=== PATIENT | female | born 1950 | race African-American/Black ===

== ENCOUNTER 2017-01-22 10:50 | Day surgery (SDC) | payer OTHER, BC ==
[2017-01-18 15:11] VITALS: BMI 36.3
[~2017-01-22 10:50] MED LIST: BUPIVACAINE HCL/PF 0.5% (5MG/ML) 10 ML VIAL ONE
[2017-01-22 11:07] LABS: BASOPHIL 0.7 % (0-2.0); EOSINOPHIL 2.1 % (0-4.5); MCH 31.9 pg (25.7-33.7); MCHC 33.6 g/dl (32.0-36.0); MEAN CELL VOLUME 95.1 fl (80-96); MEAN PLT VOLUME 8.8 fl (7.5-11.1); NEUTROPHILS 68.7 % (42.8-82.8); PLATELET COUNT 237 K/MM3 (134-434); RDW 12.6 % (11.6-15.6); WHITE BLOOD COUNT 7.7 K/mm3 (4.0-10.0)
[2017-01-22 11:20] LABS: INR 1.07 (0.82-1.09); PROTHROMBIN TIME (PATIENT) 12.1 SEC (9.98-11.88)
[2017-01-22 11:22] LABS: ACTIVATED PTT 29.2 SECONDS (26.9-34.4)
[2017-01-22 11:38] VITALS: TEMP 97.4
[2017-01-22 15:37] VITALS: BP 130/60; PULSE 60
== END 2017-01-22 15:40 | disposition home or self-care (01) ==
LOC: JRADIR 10:50
PROVIDERS: ATTEND Family Medicine
PROC: 3E0R3BZ Introduction of Anesthetic Agent into Spinal Canal, Percutaneous Approach (ICD-10-PCS; principal; 2017-01-22)
PROC: 3E0R33Z Introduction of Anti-inflammatory into Spinal Canal, Percutaneous Approach (ICD-10-PCS; 2017-01-22)
PROC: B01BYZZ Fluoroscopy of Spinal Cord using Other Contrast (ICD-10-PCS; 2017-01-22)
DX: M51.26 Other intervertebral disc displacement, lumbar region (principal); M54.5 Low back pain
CPT/HCPCS: 36415; 62322; 77003-TC; 85025; 85610; 85730

== ENCOUNTER 2018-04-07 09:20 | Observation (INO) | payer OTHER, BC ==
[2018-04-07 09:36] VITALS: BMI 37.3
--- NOTE | 2018-04-07 09:42 | PDOC ---
History of Present Illness - General Chief Complaint: Nausea/Vomiting Stated Complaint: CHEST PAIN Time Seen by Provider: 04/07/18 09:38 - History of Present Illness Initial Comments: 04/07/18 10:03 The patient is a 67 year old female with a PMH of HTN, HLD, "heart problems" and hyperthyroidism presents to the ED c/o 3 day h/o intermittent chest/ abdominal pain. Pain is midsternal/upper abdomen, non-qualifiable and was initially radiating to her back, however is not currently doing so. Pain was initially intermittent (some relief with PO intake making her initially think it was hunger pains) and when it became constant this morning she decided to come to the ED. Endorses nausea w/o vomiting. Denies shortness of breath, increased lower extremity swelling, recent immobilization as well as fevers/ chills. Three normal BM today, notes she usually one has one BM daily. Notes she had a stress test last month that "was bad." NKDA PMD: Dr. Hinojosa Cardiology: Dr. Sawyer As per EMR, patient has not been evaluated in our ED on prior occasion. Past History - Past Medical History Allergies/Adverse Reactions: Allergies Allergy/AdvReac Type Severity Reaction Status Date / Time No Known Drug Allergies Allergy Verified 04/07/18 11:02 Home Medications: Ambulatory Orders Amlodipine Bes/Olmesartan Med [Dustin 10-40 mg Tablet] 1 each PO DAILY 01/18/17 Aspirin Coated [Ecotrin -] 81 mg PO DAILY 01/18/17 Carvedilol Phosphate [Coreg Cr -] 80 mg PO DAILY 01/18/17 Hydrochlorothiazide [Hctz -] 12.5 mg PO DAILY 01/18/17 Methimazole [Tapazole] 5 mg PO ASDIR 01/18/17 Methimazole [Tapazole -] 5 mg PO DAILY tablet 04/08/18 Pantoprazole Sodium [Protonix -] 40 mg PO DAILY #30 tablet.ec 04/08/18 Rosuvastatin [Crestor -] 20 mg PO HS #30 tablet 04/08/18 Anemia: No Asthma: No Cancer: No Cardiac Disorders: Yes ("BLOCKAGE") CVA: No COPD: No CHF: No Dementia: No Diabetes: ("PRE-DIABETIC") GI Disorders: Yes (REFLUX) Disorders: No HTN: Yes Hypercholesterolemia: Yes Liver Disease: No Seizures: No Thyroid Disease: Yes - Surgical History Abdominal Surgery: No Appendectomy: No Cardiac Surgery: No Cholecystectomy: No Lung Surgery: No Neurologic Surgery: No Orthopedic Surgery: No - Immunization History Immunization Up to Date: No - Suicide/Smoking/Psychosocial Hx Smoking History: Never smoked Have you smoked in the past 12 months: No Hx Alcohol Use: No Drug/Substance Use Hx: No Substance Use Type: None Hx Substance Use Treatment: No Review of Systems - Review of Systems Constitutional: No: Chills, Fever HEENTM: No: Recent change in vision, Throat Pain Respiratory: No: Shortness of Breath, Wheezing Cardiac (ROS): Yes: Chest Pain. No: Lightheadedness, Palpitations, Syncope ABD/GI: Yes: Nausea. No: Constipated, Diarrhea, Vomiting *Physical Exam - Vital Signs Last Vital Signs Temp Pulse Resp BP Pulse Ox 97.9 F 74 16 164/77 95 04/07/18 09:33 04/07/18 09:33 04/07/18 09:33 04/07/18 09:33 04/07/18 09:33 - Physical Exam Comments: 04/07/18 12:41 "GENERAL: Awake, alert, and fully oriented, in no acute distress. HEAD: No signs of trauma EYES: PERRLA, EOMI, sclera anicteric, conjunctiva clear ENT: Auricles normal inspection, hearing grossly normal, nares patent, oropharynx clear without exudates. Moist mucosa NECK: Nontender, no stepoffs, Normal ROM, supple, no lymphadenopathy, JVD, or masses LUNGS: Breath sounds equal, clear to auscultation bilaterally. No wheezes, and no crackles HEART: Regular rate and rhythm, normal S1 and S2, no murmurs, rubs or gallops ABDOMEN: Soft, nontender, normoactive bowel sounds. No guarding, no rebound. No masses EXTREMITIES: Normal range of motion, no edema. No clubbing or cyanosis. No cords, erythema, or tenderness NEUROLOGICAL: Cranial nerves II through XII intact. 5/5 strength and sensation in all extremities, Normal speech, normal gait, normal cerebellar function SKIN: Warm, Dry, normal turgor, no rashes or lesions noted. Moderate Sedation - Procedure Monitoring Vital Signs: Procedure Monitoring Vital Signs Temperature 97.9 F 04/07/18 09:33 Pulse Rate 74 04/07/18 09:33 Respiratory Rate 16 04/07/18 09:33 Blood Pressure 164/77 04/07/18 09:33 O2 Sat by Pulse Oximetry (%) 95 04/07/18 09:33 ED Treatment Course - LABORATORY CBC & Chemistry Diagram: 04/08/18 05:30 04/08/18 05:30 Medical Decision Making - Medical Decision Making 04/07/18 11:53 67 year old female with intermittent chest pain, h/o recent stress testing with uncertain suboptimal results . EKG shows TWI in III, aVF and V3-V4. No prior EKGs in EMR. Frontal diagnosis: r/o ACS, Esophageal spasm, GERD, costochondritis, also consider PUD, gastritis. Consider Aortic Diesseciton however as pain not continuously radiating to the back and equal B/L BP, less likely will refrain from U/S at this time. Heart Score 4. Will obtain basic labs, Troponin, CXR. Disposition is admission for serial troponins, full cardiac evaluation. 04/07/18 11:56 Case d/w patient's PMD, Dr. Blake, notes patient was evaluated in his office on 03/23. States patient's stress test was reviewed and she was given Nitro for any chest pain. Agrees w/admission for serial troponins and requests Dr. Yang/ [facility] for cardiology. Patient reassessed @ bedside. VSS States she has not taken the nitro on prior occasion. Updated on plan of care. Dr. Sawyer consult pending. 04/07/18 15:00 Case d/w Dr. Sawyer - notes patient had low level ischemia on 12/2017 stress testing. No new EKG changes. Agrees w/admission as well as symptomatic GI treatment. 04/07/18 15:31 Case d/w Dr. Vora (covering for Dr. Hinojosa) will admit for further evaluation. Patient symptomatically improved, amenable to admission. *DC/Admit/Observation/Transfer Diagnosis at time of Disposition: Chest pain - Discharge Dispostion Condition at time of disposition: Fair Decision to Admit order: Yes - Prescriptions - Referrals - Patient Instructions - Post Discharge Activity
[2018-04-07] MEDS ORDERED: ONDANSETRON 4 MG/2 ML VIAL IVPUSH ONE (10:05)
[2018-04-07] MEDS ORDERED: FAMOTIDINE 20 MG/50 ML IVPB 20 MG/50 ML MG IVPB ONE ×2 (10:16→10:32)
[2018-04-07] MEDS ORDERED: MAG HYDROX/AL HYDROX/SIMETH 30 ML UNIT-DOSE CUP PO ONE (10:16)
[2018-04-07] MEDS ORDERED: SODIUM CHLORIDE 0.9% 500 ML INFUS.BAG IV ONE (10:16)
[2018-04-07] MEDS ORDERED: ONDANSETRON 4 MG/2 ML VIAL ONE ×2 (10:17→10:41)
[2018-04-07] MEDS ORDERED: MAG HYDROX/AL HYDROX/SIMETH 30 ML UNIT-DOSE CUP ONE (10:32)
--- NOTE | 2018-04-07 10:37 | PDOC ---
Attending Attestation - Resident Resident Name: Niki Yao - ED Attending Attestation I have performed the following: I have examined & evaluated the patient, The case was reviewed & discussed with the resident, I agree w/resident's findings & plan, Exceptions are as noted - HPI HPI: 04/07/18 10:35 67 F with h/o HTN, HLD, and hyperthyroidism, presenting to ED with chest pain x 3 days. Pt states that it is intermittent, midsternal. Does not radiate. She notes that it feels like hunger pains but states that she has never had pain like this before. Denies SOB. Denies diaphoresis. Endorses mild nausea without vomiting. NO abdominal pain. No F/C. Denies any increased leg swelling. No recent immobilization. Pt notes that she follows with Dr. Ibarra, who did a stress test last month that pt reports was "not normal". - Physicial Exam PE: 04/07/18 10:37 "GENERAL: Awake, alert, and fully oriented, in no acute distress. HEAD: No signs of trauma EYES: PERRLA, EOMI, sclera anicteric, conjunctiva clear ENT: Auricles normal inspection, hearing grossly normal, nares patent, oropharynx clear without exudates. Moist mucosa NECK: Nontender, no stepoffs, Normal ROM, supple, no lymphadenopathy, JVD, or masses LUNGS: Breath sounds equal, clear to auscultation bilaterally. No wheezes, and no crackles HEART: Regular rate and rhythm, normal S1 and S2, no murmurs, rubs or gallops ABDOMEN: Soft, nontender, normoactive bowel sounds. No guarding, no rebound. No masses EXTREMITIES: Normal range of motion, no edema. No clubbing or cyanosis. No cords, erythema, or tenderness NEUROLOGICAL: Cranial nerves II through XII intact. 5/5 strength and sensation in all extremities, Normal speech, normal gait, normal cerebellar function SKIN: Warm, Dry, normal turgor, no rashes or lesions noted. - Medical Decision Making 04/07/18 10:37 67 F with 3 days of intermittent chest pressure. EKG with TWIs in leads III, aVF , V3-V4. No prior EKGs to compare. Will need ACS rule out. Pt with no clinical s /s DVT. - Labs, trop - CXR - Cards consult w Dr. Ibarra - Admit tele
[2018-04-07 10:51] LABS: BASO % 0.5 % (0-2.0); HEMATOCRIT 32.4 % (32.4-45.2); HEMOGLOBIN 11.2 GM/dL (10.7-15.3); LYMPH % 20.3 % (8-40); MCH 33.1 pg (25.7-33.7); MCHC 34.4 g/dl (32.0-36.0); MEAN CELL VOLUME 96.2 fl (80-96); MEAN PLT VOLUME 9.7 fl (7.5-11.1); MONO % 5.9 % (3.8-10.2); NEUT % 72.3 % (42.8-82.8); PLATELET COUNT 207 K/MM3 (134-434); RBC 3.37 M/mm3 (3.60-5.2); RDW 12.2 % (11.6-15.6); WHITE BLOOD COUNT 6.5 K/mm3 (4.0-10.0)
[2018-04-07 11:23] LABS: ALBUMIN 4.4 g/dl (3.4-5.0); ALK PHOS 71 U/L (45-117); ANION GAP 4 MMOL/L (8-16); BILIRUBIN,TOTAL 0.4 mg/dL (0.2-1); BLOOD UREA NITROGEN 25 mg/dL (7-18); CALCIUM 9.4 mg/dL (8.5-10.1); CHLORIDE 106 mmol/L (98-107); CO2 28 mmol/L (21-32); CREATININE 1.1 mg/dL (0.55-1.3); GLUCOSE,RANDOM 119 mg/dL (74-106); N-TERMINAL BNP 124.5 pg/ml (5-125); POTASSIUM 4.4 mmol/L (3.5-5.1); SGOT/AST 16 U/L (15-37); SGPT/ALT 17 U/L (13-61); SODIUM 138 mmol/L (136-145); TOT PROT 8.4 g/dl (6.4-8.2)
--- NOTE | 2018-04-07 14:35 | CON.CARD ---
Consult Consult Specialty:: Cardiology Referred by:: Emergency Medicine Reason for Consultation:: Chest pain - History of Present Illness Chief Complaint: Chest pain History of Present Illness: Chief Complaint: Follow-up evaluation in a patient with known history of coronary artery disease/chest pain syndrome, diastolic left ventricular dysfunction, hypertensive cardiovascular disease, [id number] diabetes mellitus and hypercholesterolemia. History of Present Illness: 67-year-old female of [place] descent of ancestry with known history of coronary artery disease/chest pain syndrome with mildly abnormal MPI 12/2017 angina pectoris, diastolic left ventricular dysfunction with chronic class 0-I [place] [employer] classification left ventricular failure, mitral valve redundancy with no evidence of mitral valve prolapse and mild degree of mitral valve regurgitation on echocardiography performed June 26, 2016, heart murmur related to aortic valve sclerosis with no evidence of aortic valve stenosis on echocardiography performed June 26, 2016, tricuspid valve regurgitation mild in severity with mild to moderate degree of pulmonary hypertension RVSP of 44 mmHg on echocardiography performed April 08, 2014 and 36.2 mmHg on echocardiography performed June 26, 2016, hypertensive cardiovascular disease, non-insulin- dependent diabetes mellitus dietary management, hypercholesterolemia, complete right bundle branch block, hyperthyroidism, gastro-esophageal reflux disease, degenerative lumbosacral disc disease with chronic low back pain syndrome and chronic anemia who was last evaluated in the office December 09, 2017. Patient presents to ED with intermittent, non-exertional retrosternal chest and epigastric discomfort radiating to back without dyspnea on exertion worse than baseline, orthopnea or paroxysmal nocturnal dyspnea, near or true syncope, or palpitations, fatigue or tiredness. Patient does not exercise on regular bases but she remains active. Patient reports weight gain related to the above-noted lack of exercise and dietary indiscretion. - History Source History Provided By: Patient Limitations to Obtaining History: No Limitations - Alcohol/Substance Use Hx Alcohol Use: No - Smoking History Smoking history: Never smoked Have you smoked in the past 12 months: No Home Medications - Allergies Allergies/Adverse Reactions: Allergies Allergy/AdvReac Type Severity Reaction Status Date / Time No Known Drug Allergies Allergy Verified 04/07/18 11:02 - Home Medications Home Medications: Ambulatory Orders Amlodipine Bes/Olmesartan Med [Dustin 10-40 mg Tablet] 1 each PO DAILY 01/18/17 Aspirin Coated [Ecotrin -] 81 mg PO DAILY 01/18/17 Carvedilol Phosphate [Coreg Cr -] 80 mg PO DAILY 01/18/17 Hydrochlorothiazide [Hctz -] 12.5 mg PO DAILY 01/18/17 Methimazole [Tapazole] 5 mg PO ASDIR 01/18/17 Rosuvastatin Calcium [Crestor] 10 mg PO HS 01/18/17 Review of Systems - Review of Systems Cardiovascular: reports: Chest Pain, Shortness of Breath Gastrointestinal: reports: Abdominal Pain Vital Signs: Vital Signs Temperature 98.1 F 04/07/18 10:44 Pulse Rate 66 04/07/18 10:44 Respiratory Rate 18 04/07/18 10:44 Blood Pressure 146/68 04/07/18 10:44 O2 Sat by Pulse Oximetry (%) 98 04/07/18 11:26 Constitutional: Yes: No Distress, Calm Neck: Yes: Supple Respiratory: Yes: Regular, CTA Bilaterally Gastrointestinal: Yes: Soft, Hypoactive Bowel Sounds, Tenderness, Epigastrium Cardiovascular: Yes: Regular Rate and Rhythm JVD: No Carotid Bruit: No Heart Sounds: Yes: S1, S2 Edema: No - Other Data Labs, Other Data: CBC, BMP 04/07/18 10:35 04/07/18 10:35 Troponin, BNP 04/07/18 10:35 Troponin I < 0.02 B-Natriuretic Peptide 124.5 Troponin, BNP 04/07/18 10:35 Troponin I < 0.02 B-Natriuretic Peptide 124.5 NSR @ 72 RBBB similar to previous Ejection Fraction %: LVEF > or = 40 % Imaging - Results Chest X-ray: Report Reviewed (NAD) Problem List - Problems (1) Chest pain Code(s): R07.9 - CHEST PAIN, UNSPECIFIED Qualifiers: Chest pain type: unspecified Qualified Code(s): R07.9 - Chest pain, unspecified (2) Mitral valve prolapse syndrome Code(s): I34.1 - NONRHEUMATIC MITRAL (VALVE) PROLAPSE (3) Hyperlipidemia Code(s): E78.5 - HYPERLIPIDEMIA, UNSPECIFIED Qualifiers: Hyperlipidemia type: pure hypercholesterolemia Qualified Code(s): E78.00 - Pure hypercholesterolemia, unspecified; E78.0 - Pure hypercholesterolemia (4) Diastolic dysfunction Code(s): I51.89 - OTHER ILL-DEFINED HEART DISEASES (5) Hypertensive cardiovascular disease Code(s): I11.9 - HYPERTENSIVE HEART DISEASE WITHOUT HEART FAILURE Qualifiers: Heart failure presence: without heart failure Qualified Code(s): I11.9 - Hypertensive heart disease without heart failure (6) Abnormal cardiovascular function study Code(s): R94.30 - ABNORMAL RESULT OF CARDIOVASCULAR FUNCTION STUDY, UNSP (7) Hyperthyroidism Code(s): E05.90 - THYROTOXICOSIS, UNSP WITHOUT THYROTOXIC CRISIS OR STORM Assessment/Plan Echocardiography 01/03/2018 Normal LV size and fxn with normal LVEF 65-70%, normal RV size and fxn, mild MR, TR RVSP 38 mmHg Myocardial perfusion imaging study performed 01/07/2018 revealed small size inferolateral mild ischemia normal left ventricular contraction pattern on LV gated analysis with calculated left ventricular ejection fraction of 78% at rest , 73% post exercise reported at 92% of maximum predicted target heart rate with poor exercise tolerance and capacity and appropriate blood pressure response to level of exercise. Patient exercised for 3 minutes and 18 seconds into stage II of Jim protocol with peak exercise heart rate of 142 bpm and peak exercise blood pressure 190/80 millimeters mercury. ASSESSMENT: 1. Atypical chest pain 2. Coronary artery disease with mildly abnormal myocardial perfusion imaging study for myocardial [id number]/13/2018 angina pectoris endothelial dysfunction , stable. 3. Diastolic left ventricular dysfunction with chronic class 0-I [place] [employer] classification left ventricular failure, compensated/ euvolemic. 4. 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 5. Heart murmur related to aortic valve sclerosis with no evidence of aortic valve stenosis on echocardiography performed June 26, 2016. 6. Tricuspid valve regurgitation mild in severity with mild to moderate degree of pulmonary hypertension RVSP of 38 mmHg on echocardiography performed 2017 7. Hypertensive cardiovascular disease. 8. Hhf-qbipikk-vupnvxzoi diabetes mellitus dietary management, at goal. 9. Hypercholesterolemia. 10. Complete right bundle branch block. 11. Hyperthyroidism. 12. History of gastro-esophageal reflux disease. 13. History of degenerative lumbosacral disc disease with chronic low back pain syndrome. 14. History of chronic anemia. PLAN: 1. Ruling out for VT, agree with trial of antacids 2. Continue Dustin 5/40 qd, Coreg CR 80 qd, ASA 81 qd, Crestor 20 qd 3. Patient was strongly counseled dietary compliance including salt restriction /caloric restriction, initiation of moderate intensity aerobic exercise and weight reduction. 4. After ruled out for VT, may d/c with f/u with Dr. Ibarra for medication titration 5. Thank you for consultative opportunity
--- NOTE | 2018-04-07 14:38 | EKG ---
Test Reason : Blood Pressure : / mmHG Vent. Rate : 072 BPM Atrial Rate : 072 BPM P-R Int : 160 ms QRS Dur : 134 ms QT Int : 434 ms P-R-T Axes : 064 070 021 degrees QTc Int : 475 ms NORMAL SINUS RHYTHM RIGHT BUNDLE BRANCH BLOCK ABNORMAL ECG WHEN COMPARED WITH ECG OF 14-JUN-1999 08:41, PREMATURE SUPRAVENTRICULAR COMPLEXES ARE NO LONGER PRESENT RIGHT BUNDLE BRANCH BLOCK IS NOW PRESENT Confirmed by LA NENA LYNNE, JOAO ([id number]) on 04/07/2018 2:38:13 PM Referred By: Confirmed By:JOAO DEUTSCH MD
--- NOTE | 2018-04-07 16:19 | HP ---
Admitting History and Physical - Admission History of Present Illness: The patient is a 67 year old female with a PMH of HTN, HLD, CAD and hyperthyroidism presents to the ED c/o intermittent abdominal pain. Pain started three days previous and was initially intermittent (some relief with PO intake) and when it became constant this morning she decided to come to the ED. Endorses nausea w/o vomiting. Denies chest pain, shortness of breath as well as fevers/chills. Three normal BM today, notes she usually one has one BM daily. Denies fevers/chills. Notes she had a stress test last month that "was bad." - Past Medical History Cardiovascular: Yes: CAD, HTN, Hyperlipdemia - Smoking History Smoking history: Never smoked Have you smoked in the past 12 months: No - Alcohol/Substance Use Hx Alcohol Use: No Home Medications - Allergies Allergies/Adverse Reactions: Allergies Allergy/AdvReac Type Severity Reaction Status Date / Time No Known Drug Allergies Allergy Verified 04/07/18 11:02 - Home Medications Home Medications: Ambulatory Orders Amlodipine Bes/Olmesartan Med [Dustin 10-40 mg Tablet] 1 each PO DAILY 01/18/17 Aspirin Coated [Ecotrin -] 81 mg PO DAILY 01/18/17 Carvedilol Phosphate [Coreg Cr -] 80 mg PO DAILY 01/18/17 Hydrochlorothiazide [Hctz -] 12.5 mg PO DAILY 01/18/17 Methimazole [Tapazole] 5 mg PO ASDIR 01/18/17 Rosuvastatin Calcium [Crestor] 10 mg PO HS 01/18/17 Review of Systems - Review of Systems Gastrointestinal: reports: Abdominal Pain (epigastric pain) Physical Examination Vital Signs: Vital Signs Temperature 98.1 F 04/07/18 10:44 Pulse Rate 66 04/07/18 10:44 Respiratory Rate 18 04/07/18 10:44 Blood Pressure 146/68 04/07/18 10:44 O2 Sat by Pulse Oximetry (%) 98 04/07/18 11:26 Constitutional: Yes: Calm Cardiovascular: Yes: Regular Rate and Rhythm, Murmur, S1, S2 Respiratory: Yes: CTA Bilaterally Gastrointestinal: Yes: Normal Bowel Sounds, Soft Edema: Yes Neurological: Yes: Alert, Oriented Labs: CBC, BMP 04/07/18 10:35 04/07/18 10:35 Imaging - Results X-ray: Report Reviewed EKG: Report Reviewed Problem List - Problems (1) Chest pain Assessment/Plan: tele obersevstion CE 3 sets asa crestor norvasc olmesartan not availbe will give losartan appreicate cardiology eval ECHO if 3 cets negative no arryhtmia dc home in AM Code(s): R07.9 - CHEST PAIN, UNSPECIFIED Qualifiers: Chest pain type: unspecified Qualified Code(s): R07.9 - Chest pain, unspecified (2) Hyperthyroidism Assessment/Plan: methimazole Code(s): E05.90 - THYROTOXICOSIS, UNSP WITHOUT THYROTOXIC CRISIS OR STORM
[2018-04-07] MEDS ORDERED: ROSUVASTATIN CA 20 MG TABLET (FP) PO SCH (22:00)
[2018-04-07] MEDS ORDERED: HEPARIN NA (PORCINE) 5,000 UNITS/ML 1ML VIAL ONE (22:17)
[2018-04-07] MEDS: HEPARIN NA (PORCINE) 5,000 UNITS/ML 1ML VIAL SQ SCH (22:57)
[2018-04-08 06:41] LABS: BASO % 0.6 % (0-2.0); EOS % 1.7 % (0-4.5); HEMATOCRIT 30.2 % (32.4-45.2); HEMOGLOBIN 10.7 GM/dL (10.7-15.3); LYMPH % 32.1 % (8-40); MCH 33.7 pg (25.7-33.7); MCHC 35.3 g/dl (32.0-36.0); MEAN CELL VOLUME 95.3 fl (80-96); MEAN PLT VOLUME 9.6 fl (7.5-11.1); MONO % 6.9 % (3.8-10.2); NEUT % 58.7 % (42.8-82.8); PLATELET COUNT 199 K/MM3 (134-434); RBC 3.16 M/mm3 (3.60-5.2); RDW 12.3 % (11.6-15.6); WHITE BLOOD COUNT 4.3 K/mm3 (4.0-10.0)
[2018-04-08 07:00] VITALS: BP 146/72; PULSE 55; TEMP 98.2
[2018-04-08 07:19] LABS: INR 1.08 (0.83-1.09); PROTHROMBIN TIME (PATIENT) 12.8 SEC (9.7-13.0)
[2018-04-08 07:21] LABS: ACTIVATED PTT 28.9 SECONDS (25.2-36.5)
[2018-04-08 07:31] LABS: ALBUMIN 3.7 g/dl (3.4-5.0); ALK PHOS 62 U/L (45-117); ANION GAP 6 MMOL/L (8-16); BILIRUBIN,TOTAL 0.3 mg/dL (0.2-1); BLOOD UREA NITROGEN 15 mg/dL (7-18); CALCIUM 8.7 mg/dL (8.5-10.1); CHLORIDE 106 mmol/L (98-107); CO2 26 mmol/L (21-32); CREATININE 0.9 mg/dL (0.55-1.3); GLUCOSE,RANDOM 97 mg/dL (74-106); MAGNESIUM 2.3 mg/dL (1.8-2.4); PHOSPHOROUS 4.1 mg/dL (2.5-4.9); POTASSIUM 4.1 mmol/L (3.5-5.1); SGOT/AST 17 U/L (15-37); SGPT/ALT 17 U/L (13-61); SODIUM 138 mmol/L (136-145); TOT PROT 7.6 g/dl (6.4-8.2)
[2018-04-08] MEDS: HEPARIN NA (PORCINE) 5,000 UNITS/ML 1ML VIAL SQ SCH (09:14)
[2018-04-08] MEDS ORDERED: LOSARTAN POTASSIUM 50 MG TABLET (FP) PO SCH (10:00)
[2018-04-08] MEDS ORDERED: amLODIPine BESYLATE 10 MG TABLET (FP) PO SCH (10:00)
[2018-04-08] MEDS ORDERED: METHIMAZOLE 10 MG TABLET (FP) PO SCH (10:00)
[2018-04-08] MEDS ORDERED: CARVEDILOL PHOSPHATE CR 40 MG CAPSULE (FP) PO SCH (10:00)
[2018-04-08] MEDS ORDERED: METHIMAZOLE 5 MG TABLET (FP) PO SCH (10:00)
[2018-04-08] MEDS ORDERED: ASPIRIN 81 MG CHEWABLE TABLETS PO SCH (10:00)
--- NOTE | 2018-04-08 10:14 | PN ---
Progress Note, Physician Chief Complaint: NAUSEA/VOMITING/CHEST PAIN History of Present Illness: NAD received trial of mylanta trops negative Seen by cardiology EKG at baseline? - Current Medication List Current Medications: Active Medications Amlodipine Besylate (Norvasc -) 10 mg PO DAILY [facility] Last Admin: 04/08/18 09:14 Dose: 10 mg Aspirin (Asa -) 81 mg PO DAILY [facility] Last Admin: 04/08/18 09:14 Dose: 81 mg Carvedilol (Coreg Cr -) 80 mg PO DAILY [facility] Last Admin: 04/08/18 09:14 Dose: 80 mg Heparin Sodium (Porcine) (Heparin -) 5,000 unit SQ BID [facility] Last Admin: 04/08/18 09:14 Dose: 5,000 unit Losartan Potassium (Cozaar -) 50 mg PO DAILY [facility] Last Admin: 04/08/18 09:14 Dose: 50 mg Methimazole (Tapazole -) 5 mg PO DAILY [facility] Last Admin: 04/08/18 09:14 Dose: 5 mg Rosuvastatin Calcium (Crestor -) 20 mg PO HS [facility] Last Admin: 04/07/18 23:20 Dose: 20 mg - Objective Vital Signs: Vital Signs Temperature 98.2 F 04/08/18 06:59 Pulse Rate 55 L 04/08/18 06:59 Respiratory Rate 16 04/08/18 06:59 Blood Pressure 146/72 04/08/18 06:59 O2 Sat by Pulse Oximetry (%) 97 04/08/18 06:59 Constitutional: Yes: Well Nourished, No Distress, Calm, Obese Cardiovascular: Yes: Regular Rate and Rhythm Respiratory: Yes: Regular Gastrointestinal: Yes: Normal Bowel Sounds, Soft, Abdomen, Obese, Tenderness, Epigastrium (soreness) Musculoskeletal: Yes: WNL Extremities: Yes: WNL Edema: No Peripheral Pulses WNL: Yes Neurological: Yes: Alert, Oriented Psychiatric: Yes: Alert, Oriented Labs: CBC, BMP 04/08/18 05:30 04/08/18 05:30 INR, PTT INR 1.08 (0.83-1.09) 04/08/18 05:30 Problem List - Problems (1) Abdominal pain Assessment/Plan: -Epigastric -resolved -d/c on PPI -Encouraged to follow up with GI-Dr Chance Collado if symptoms persist Code(s): R10.9 - UNSPECIFIED ABDOMINAL PAIN (2) Nausea & vomiting Assessment/Plan: -resolved Code(s): R11.2 - NAUSEA WITH VOMITING, UNSPECIFIED (3) Chest pain Assessment/Plan: -resolved -Seen by Cardiology -Trops negative -EKG reviewed Code(s): R07.9 - CHEST PAIN, UNSPECIFIED Qualifiers: Chest pain type: unspecified Qualified Code(s): R07.9 - Chest pain, unspecified Assessment/Plan see problem list
--- NOTE | 2018-04-08 14:04 | ECHO ---
Name: MEL OLVERA Exam:Adult Echocardiogram Study Date: 04/08/2018 09:08 AM Age: 67 yrs Reason For Study: OCTAVIO FOR EJECTION FRACTION Height: 66 in Weight: 231 lb BSA: 2.1 m2 MMode/2D Measurements & Calculations IVSd: 0.83 cm Ao root diam: 2.9 cm LVIDd: 5.2 cm LA dimension: 4.2 cm LVIDs: 2.6 cm ACS: 1.9 cm LVPWd: 0.98 cm IVSs: 1.4 cm LVPWs: 1.1 cm EDV(Juventino): 127.2 ml ESV(Juventino): 25.7 ml LAV(MOD-sp2): 25.3 ml LAV(MOD-sp4): 34.6 ml LAV(MOD-bp): 30.7 ml LAV(MOD-bp) Indexed: 14.4 ml/m2 Doppler Measurements & Calculations MV E max malik: 96.3 cm/sec Ao V2 max: 164.1 cm/sec MV A max malik: 84.4 cm/sec Ao max P.8 mmHg MV E/A: 1.1 Ao V2 mean: 108.5 cm/sec MV dec time: 0.19 sec Ao mean P.6 mmHg Ao V2 VTI: 35.9 cm MR max malik: 400.1 cm/sec TR max malik: 265.4 cm/sec MR max P.0 mmHg TR max P.2 mmHg Med Peak E' Malik: 5.4 cm/sec Med E/e': 18.0 Lat Peak E' Malik: 9.7 cm/sec Lat E/e': 10.0 Procedure The study was technically adequate with some images being suboptimal in quality. Left Ventricle There is mild concentric left ventricular hypertrophy. The left ventricular ejection fraction is norm al. Ejection Fraction = 55%. The transmitral spectral Doppler flow pattern is normal for age. Right Ventricle The right ventricle is normal in size and function. Atria Normal left and right atrial size and function. Mitral Valve The mitral valve is normal in structure and function. Tricuspid Valve The tricuspid valve is normal. There is mild tricuspid regurgitation. Aortic Valve The aortic valve is normal in structure and function. Pulmonic Valve The pulmonic valve is not well visualized. Great Vessels The aortic root is normal size. Pericardium/Pleura There is no pericardial effusion. Interpretation Summary There is mild concentric left ventricular hypertrophy. The left ventricular ejection fraction is normal. Leo Ramirez 04/08/2018 02:04 PM
== END 2018-04-08 11:12 | disposition home or self-care (01) ==
LOC: JER 09:20 → JERBED 11:58
PROVIDERS: ADMIT Family Medicine; ATTEND Family Medicine
PROC: 3E033GC Introduction of Other Therapeutic Substance into Peripheral Vein, Percutaneous Approach (ICD-10-PCS; principal; 2018-04-07)
PROC: 3E0337Z Introduction of Electrolytic and Water Balance Substance into Peripheral Vein, Percutaneous Approach (ICD-10-PCS; 2018-04-07)
PROC: 3E013GC Introduction of Other Therapeutic Substance into Subcutaneous Tissue, Percutaneous Approach (ICD-10-PCS; 2018-04-07)
DX: R07.89 Other chest pain (principal); I11.0 Hypertensive heart disease with heart failure; I50.1 Left ventricular failure, unspecified; I34.1 Nonrheumatic mitral (valve) prolapse; I25.10 Atherosclerotic heart disease of native coronary artery without angina pectoris; E78.5 Hyperlipidemia, unspecified; E05.90 Thyrotoxicosis, unspecified without thyrotoxic crisis or storm; R73.03 Prediabetes; K21.9 Gastro-esophageal reflux disease without esophagitis; R94.30 Abnormal result of cardiovascular function study, unspecified; R10.9 Unspecified abdominal pain; R11.2 Nausea with vomiting, unspecified; Z79.82 Long term (current) use of aspirin
CPT/HCPCS: 36415; 71045-TC-FY; 80053; 80061; 82550; 82553; 83036; 83690; 83721; 83735; 83880; 84100; 84439; 84443; 84484; 85025; 85027; 85610; 85730; 93005; 93010; 93306-TC; 96365; 96372; 96375; 99285-25; G0378; J1644

== ENCOUNTER 2019-11-12 05:03 | Inpatient (IN) | payer OTHER, BC ==
[2019-11-11 15:35] VITALS: BMI 35.5
[~2019-11-12 05:03] MED LIST changes: -BUPIVACAINE HCL/PF 0.5% (5MG/ML) 10 ML VIAL ONE; +CEFAZOLIN 2 GM in DEXTROSE 5%-WATER - 100 ML IVPB ONE
[2019-11-12] MEDS ORDERED: BUPIVACAINE LIPOSOME/PF (EXPAREL) 266 MG/20 ML VIAL ONE (08:52)
[2019-11-12] MEDS ORDERED: ceFAZolin SODIUM 1 GM VIAL ONE ×2 (09:05→17:16)
[2019-11-12] MEDS ORDERED: MIDAZOLAM HCL 2 MG/2 ML SINGLE DOSE VIAL ONE ×3 (10:50→13:02)
[2019-11-12] MEDS ORDERED: ceFAZolin SODIUM 1 GM VIAL IVPB ONE (11:15)
[2019-11-12] MEDS ORDERED: MAGNESIUM HYDROX 2400MG/30ML ORAL SUSPENSION 30 ML CUP PO PRN (13:56)
[2019-11-12] MEDS ORDERED: MAG HYDROX/AL HYDROX/SIMETH 30 ML UNIT-DOSE CUP PO PRN (13:56)
[2019-11-12] MEDS ORDERED: LACTATED RINGERS SOLUTION 1,000 ML IV SCH (14:00)
[2019-11-12] MEDS ORDERED: BACLOFEN 10 MG TABLET (FP) PO PRN (14:00)
[2019-11-12] MEDS ORDERED: oxyCODONE HCL 5 MG TABLET PO PRN (14:02)
--- NOTE | 2019-11-12 14:08 | OP ---
Operative Note - Note: Operative Date: 11/12/19 Pre-Operative Diagnosis: Right knee osteoarthritis Operation: Right knee total arthroplasty Post-Operative Diagnosis: Same as Pre-op Surgeon: Theodore Zelaya I [employer] Crewmember: Yeyo You Anesthesiologist/PROBATE PARALEGAL: Manjeet Liang Anesthesia: Spinal Estimated Blood Loss (mls): 100 Operative Report Dictated: Yes
--- NOTE | 2019-11-12 14:09 | SURG ---
Surgery Collections Representative Note Collections Representative: Yeyo You PA-C Date of Service: 11/12/19 Diagnosis: Right knee osteoarthritis Procedure: Rt knee arthroplasty I was present for the entirety of the operative procedure. For further detail, please refer to operative report. Visit type - Case Type Case Type: Scheduled - Emergency Emergency Visit: No - New patient This patient is new to me today: Yes Date on this admission: 11/12/19 - Critical Care Critical Care patient: No
[2019-11-12] MEDS: ONDANSETRON 4 MG/2 ML VIAL IVPUSH PRN (15:38)
[2019-11-12] MEDS: ACETAMINOPHEN 325 MG TABLET (FP) PO PRN (16:10)
--- NOTE | 2019-11-12 17:15 | OP ---
DATE OF OPERATION: 11/12/2019 PREOPERATIVE DIAGNOSIS: Severe degenerative joint disease of the right knee plus varus deformity. POSTOPERATIVE DIAGNOSIS: Severe degenerative joint disease of the right knee plus varus deformity. Plus degenerative tearing of the medial and the lateral menisci. SURGEON: Theodore Zelaya MD. ANESTHESIA: Spinal. PROCEDURE: Total knee replacement, medial and lateral meniscectomy, and medial release. DESCRIPTION OF PROCEDURE: After induction of spinal anesthesia, and without any tourniquet, the entire leg and knee and thigh were now prepped and draped in the usual manner. An anterior incision was made extending from the tibial tubercle proximally to almost 4 cm proximal to the superior pole of the patella. This was deepened through the subcutaneous tissue down to the extensor mechanism surface. A gentle medial flap was made, uncovering proximally the junction between the vastus medialis and the rectus femoris in the mid section of the medial border of the patella, and distally the medial border of the patellar tendon. The extensor mechanism now was released along that line. The synovium was opened. A large amount of serous fluid extruded out of the joint. The inspection confirmed the extensive arthritic changes mostly in the form of very severe damage to the articular cartilage throughout the knee, including the medial and lateral femoral condyle as well as the articular surface of the patella. Marginal osteophytes were visible. Degenerative tearing was found in the medial and the lateral menisci, and a radial tear in the posterior horn of the medial meniscus was also found. The procedure started first by a debulking of the hypertrophied synovium, which was followed by an excision of the medial and the lateral menisci through the same arthrotomy. Following this and using appropriate jigs from and Nephew lesion prosthesis, a distal cut was made into the femur, recessed 2 mm to accommodate 45 degrees flexure contracture. Other jigs also were used, and cuts were made into the distal femur of the proximal tibia and the articular surface of the patella. Sizing was done using the appropriate sizers, and the best size for the femur was number 5, for the tibia it was also a number 5. There was a 9-mm spacer and a 35-mm patella button. Trials were placed, and the knee now was examined. The knee being in a slight varus, there was some asymmetry of the box in extension and at this point a gentle pie crusting release was done to the medial structures. This allowed a normal alignment of the knee with the box parallel in extension. The knee was taken through range of motion, and it was from 0 to 140 degrees of flexion. The patella was tracking perfectly while in the intracondylar groove. All temporary components now were removed. Irrigation was done with normal saline. Hemostasis obtained. The final prosthesis was placed first by cementing the patella button and the tibial tray, and after hardening of the cement, the femoral component was Press-Fit against the femur and the spacer was placed in between. A final check showed a near anatomic alignment of 5 degrees of valgus clinically. There was perfect stability in extension and in flexion, range of motion from 0 to 135 degrees of flexion. The patella was tracking perfectly while in the intracondylar groove. Final irrigation was done with normal saline. The wound was closed in several layers, Vicryl number 1 for the extensor mechanism, 2-0 for the subcutaneous tissue, and wesley for the skin. The dressing was applied. Intraoperative x-rays were done and checked and showed excellent alignment of the prosthesis. The patient tolerated the procedure and left the operating room in excellent condition. Elaine [id number]
[2019-11-12] MEDS ORDERED: CEFAZOLIN 2 GM in DEXTROSE 5%-WATER - 100 ML IVPB ONE (18:00)
[2019-11-12] MEDS ORDERED: KETOROLAC TROMETHAMINE 30 MG/1 ML VIAL IVPUSH ONE (18:05)
[2019-11-12] MEDS ORDERED: ACETAMINOPHEN 1000 MG/100 ML VIAL (NON FORMULARY) IVPB ONE (18:05)
--- NOTE | 2019-11-12 20:22 | HP ---
PCP: Fan Hinojosa HISTORY OF PRESENT ILLNESS: This is a 69 y/o female with a PMHx significant for HTN, HLD, CAD, Osetoarthritis Right Knee. s/p Right Total Knee Replacement today with Dr. Theodore Zelaya Recent Travel: No PAST MEDICAL HISTORY: Hypertension Hyperlipidemia Coronary Artery Disease Osteoarthritis Right Knee PAST SURGICAL HISTORY: Social History: Smoking: Never Alcohol: None Drugs: None Family History: Unremarkable Allergies No Known Drug Allergies Allergy (Verified 11/12/19 09:43) HOME MEDICATIONS: Home Medications Medication Instructions Recorded Amlodipine Bes/Olmesartan Med 1 each PO DAILY 01/18/17 [Dustin 10-40 mg Tablet] Aspirin Coated [Ecotrin -] 81 mg PO DAILY 01/18/17 Carvedilol Phosphate [Coreg Cr -] 80 mg PO DAILY 01/18/17 Hydrochlorothiazide [Hctz -] 12.5 mg PO DAILY 01/18/17 Pantoprazole Sodium [Protonix -] 40 mg PO DAILY #30 tablet.ec 04/08/18 Rosuvastatin [Crestor -] 20 mg PO HS #30 tablet 04/08/18 Ascorbate Calcium [Vitamin C] 500 mg PO DAILY 11/11/19 Baclofen 10 mg PO HS PRN 11/11/19 Cholecalciferol (Vitamin D3) 2,000 unit PO DAILY 11/11/19 [Vitamin D3] REVIEW OF SYSTEMS CONSTITUTIONAL: Absent: fever, chills, diaphoresis, generalized weakness, malaise, loss of appetite, weight change HEENT: Absent: rhinorrhea, nasal congestion, throat pain, throat swelling, difficulty swallowing, mouth swelling, ear pain, eye pain, visual changes CARDIOVASCULAR: Absent: chest pain, syncope, palpitations, irregular heart rate, lightheadedness, peripheral edema RESPIRATORY: Absent: cough, shortness of breath, dyspnea with exertion, orthopnea, wheezing, stridor, hemoptysis GASTROINTESTINAL: Absent: abdominal pain, abdominal distension, nausea, vomiting, diarrhea, constipation, melena, hematochezia GENITOURINARY: Absent: dysuria, frequency, urgency, hesitancy, hematuria, flank pain, genital pain MUSCULOSKELETAL: Right Knee Pain Absent: myalgia, arthralgia, joint swelling, back pain, neck pain SKIN: Absent: rash, itching, pallor HEMATOLOGIC/IMMUNOLOGIC: Absent: easy bleeding, easy bruising, lymphadenopathy, frequent infections ENDOCRINE: Absent: unexplained weight gain, unexplained weight loss, heat intolerance, cold intolerance NEUROLOGIC: Absent: headache, focal weakness or paresthesias, dizziness, unsteady gait, seizure, mental status changes, bladder or bowel incontinence PSYCHIATRIC: Absent: anxiety, depression, suicidal or homicidal ideation, hallucinations. PHYSICAL EXAMINATION Vital Signs - 24 hr 11/12/19 11/12/19 11/12/19 08:47 13:51 14:05 Temperature 96.4 F L 96.0 F L Pulse Rate 56 L 57 L 50 L Respiratory 18 17 14 Rate Blood Pressure 120/49 L 115/57 L 113/55 L O2 Sat by Pulse 100 100 100 Oximetry (%) 11/12/19 11/12/19 11/12/19 14:20 14:35 14:50 Temperature Pulse Rate 46 L 50 L 47 L Respiratory 14 14 14 Rate Blood Pressure 118/71 104/72 116/62 O2 Sat by Pulse 100 100 100 Oximetry (%) 11/12/19 11/12/19 11/12/19 15:05 15:20 15:35 Temperature Pulse Rate 60 60 61 Respiratory 16 12 16 Rate Blood Pressure 113/65 112/70 106/57 L O2 Sat by Pulse 100 100 100 Oximetry (%) 11/12/19 11/12/19 11/12/19 15:50 16:20 16:50 Temperature Pulse Rate 58 L 60 57 L Respiratory 16 16 16 Rate Blood Pressure 112/60 122/60 120/56 L O2 Sat by Pulse 100 100 100 Oximetry (%) 11/12/19 11/12/19 11/12/19 17:20 17:50 18:20 Temperature Pulse Rate 61 62 60 Respiratory 14 14 16 Rate Blood Pressure 130/72 142/70 141/56 L O2 Sat by Pulse 100 100 100 Oximetry (%) 11/12/19 11/12/19 18:50 19:25 Temperature 98.0 F Pulse Rate 66 65 Respiratory 16 16 Rate Blood Pressure 146/54 L 144/72 O2 Sat by Pulse 100 100 Oximetry (%) GENERAL: Awake, alert, and fully oriented, in no acute distress. HEAD: Normal with no signs of trauma. EYES: Pupils equal, round and reactive to light, extraocular movements intact, sclera anicteric, conjunctiva clear. No lid lag. EARS, NOSE, THROAT: Ears normal, nares patent, oropharynx clear without exudates. Moist mucous membranes. NECK: Normal range of motion, supple without lymphadenopathy, JVD, or masses. LUNGS: Breath sounds equal, clear to auscultation bilaterally. No wheezes, and no crackles. No accessory muscle use. HEART: Regular rate and rhythm, normal S1 and S2 without murmur, rub or gallop. ABDOMEN: Soft, nontender, not distended, normoactive bowel sounds, no guarding, no rebound, no masses. No hepatomegaly or splenomegaly. MUSCULOSKELETAL: LROM of RLE, TTP to right knee. Normal range of motion at RUE, LUE, LLE joints. No bony deformities. No CVA tenderness. UPPER EXTREMITIES: 2+ pulses, warm, well-perfused. No cyanosis. No clubbing. No peripheral edema. LOWER EXTREMITIES: Icepack, Surgical Dressing c/d/i, 2+ pulses, warm, well- perfused. No calf tenderness. No peripheral edema. NEUROLOGICAL: Cranial nerves II-XII intact. Normal speech. Gait not observed. PSYCHIATRIC: Cooperative. Good eye contact. Appropriate mood and affect. SKIN: Warm, dry, normal turgor, no rashes or lesions noted, normal capillary refill. Laboratory Results - last 24 hr 11/12/19 11/12/19 08:11 09:34 POC Glucometer 127 Blood Type O POSITIVE Antibody Screen Negative Pre Op: wbc 6.2 hgb 10.5 plt 221 Na 141 K 4.6 Bun 21 Cr 0.97 Glu 88 Intra Op: Ancef 2gm LR@125ml/hr EBL 100ml ASSESSMENT/PLAN: This is a 69 y/o female with a PMHx significant for HTN, HLD, CAD, Osteoarthritis Right Knee. s/p Right Total Knee Replacement today with Dr.Jean Zelaya. Right Total Knee Replacement - POD #0 - Perioperative antibiotics per surgeon - Pain Management per surgeon - ASA 81mg BID - Protonix - Bowel Regimen - Incentive Spirometry - PT Hypertension - Monitor BP - Continue Amlodipine, Losartan - Monitor renal function Hyperlipidemia - Continue Crestor - Monitor LFTs Coronary Artery Disease - Continue Coreg, Asa, Crestor FEN LR@125ml/hr Replete lytes as indicated Low Na Diet DVT ppx OOB SCDs TEDs ASA 81mg BID Code Status: Full Code Dispo: Requires Inpatient Care Family Medical History Family History: As Documented Visit type - Medication Review Med list reviewed for High Risk Meds patients 65 and older: Yes - Emergency Visit Emergency Visit: No - New Patient This patient is new to me today: Yes Date on this admission: 11/12/19 - Critical Care Critical Care patient: No
[2019-11-12 22:03] LABS: BASO % 0.1 % (0-2.0); EOS % 0.1 % (0-4.5); HEMATOCRIT 28.5 % (32.4-45.2); HEMOGLOBIN 9.4 GM/dL (10.7-15.3); LYMPH % 7.6 % (8-40); MCH 31.6 pg (25.7-33.7); MCHC 32.9 g/dl (32.0-36.0); MEAN CELL VOLUME 96.1 fl (80-96); MEAN PLT VOLUME 9.8 fl (7.5-11.1); MONO % 4.4 % (3.8-10.2); NEUT % 87.8 % (42.8-82.8); PLATELET COUNT 203 K/MM3 (134-434); RBC 2.97 M/mm3 (3.60-5.2); RDW 12.7 % (11.6-15.6); WHITE BLOOD COUNT 11.8 K/mm3 (4.0-10.0)
[2019-11-12] MEDS: ASPIRIN 81 MG CHEWABLE TABLETS PO SCH (22:15)
[2019-11-12] MEDS: CARVEDILOL 25 MG TABLET (FP) PO SCH (22:15)
[2019-11-12] MEDS: ROSUVASTATIN CA 20 MG TABLET (FP) PO SCH (22:16)
[2019-11-12] MEDS: SENNOSIDES/DOCUSATE COMBO (SENNA PLUS) TABLET (UD) PO SCH (22:16)
[2019-11-12 22:27] LABS: ALBUMIN 3.7 g/dl (3.4-5.0); BILIRUBIN,TOTAL 0.3 mg/dL (0.2-1); BLOOD UREA NITROGEN 22.2 mg/dL (7-18); CALCIUM 8.9 mg/dL (8.5-10.1); CREATININE 1.2 mg/dL (0.55-1.3); POTASSIUM 4.3 mmol/L (3.5-5.1); TOT PROT 7.1 g/dl (6.4-8.2)
[2019-11-13] MEDS: CEFAZOLIN 2 GM/D5W 2 GM/50 ML ML IVPB SCH ×2 (01:49→09:29)
[2019-11-13] MEDS: oxyCODONE HCL 5 MG TABLET PO PRN ×4 (02:01→20:19)
--- NOTE | 2019-11-13 07:50 | PN ---
Progress Note, Physician - Current Medication List Current Medications: Active Medications Acetaminophen (Tylenol -) 650 mg PO Q6H PRN PRN Reason: PAIN LEVEL 1-5 Last Admin: 11/12/19 16:10 Dose: 650 mg Documented by: Al Hydroxide/Mg Hydroxide (Mylanta Oral Suspension -) 30 ml PO Q4H PRN PRN Reason: DYSPEPSIA Amlodipine Besylate (Norvasc -) 10 mg PO DAILY [facility] Ascorbic Acid (Vitamin C -) 500 mg PO DAILY [facility] Aspirin (Asa -) 81 mg PO BID [facility] Last Admin: 11/12/19 22:15 Dose: 81 mg Documented by: Baclofen (Lioresal -) 10 mg PO HS PRN PRN Reason: CRAMPS Carvedilol (Coreg -) 25 mg PO BID [facility] Last Admin: 11/12/19 22:15 Dose: 25 mg Documented by: Cholecalciferol (Vitamin D3 -) 2,000 unit PO DAILY [facility] Cefazolin Sodium/Dextrose (Ancef 2 Gm Premixed Ivpb -) 2 gm in 50 mls @ 100 mls/hr IVPB Q8H [facility] Stop: 11/13/19 10:29 Last Admin: 11/13/19 01:49 Dose: 100 mls/hr Documented by: Losartan Potassium (Cozaar -) 100 mg PO DAILY [facility] Magnesium Hydroxide (Milk Of Magnesia -) 30 ml PO PRN PRN PRN Reason: CONSTIPATION Multivitamins/Minerals/Vitamin C (Tab-A-Vit -) 1 tab PO DAILY [facility] Ondansetron HCl (Zofran Injection) 4 mg IVPUSH Q6H PRN PRN Reason: NAUSEA Last Admin: 11/12/19 15:38 Dose: 4 mg Documented by: Oxycodone HCl (Roxicodone -) 5 mg PO Q4H PRN PRN Reason: PAIN LEVEL 1-5 Last Admin: 11/12/19 16:10 Dose: 5 mg Documented by: Oxycodone HCl (Roxicodone -) 10 mg PO Q4H PRN PRN Reason: PAIN LEVEL 6-10 Last Admin: 11/13/19 02:01 Dose: 10 mg Documented by: Pantoprazole Sodium (Protonix -) 40 mg PO DAILY [facility] Rosuvastatin Calcium (Crestor -) 20 mg PO HS [facility] Last Admin: 11/12/19 22:16 Dose: 20 mg Documented by: Senna/Docusate Sodium (Pericolace -) 2 tablet PO BID [facility] Last Admin: 11/12/19 22:16 Dose: 2 tablet Documented by: - Objective Vital Signs: Vital Signs Temperature 99.3 F 11/13/19 05:50 Pulse Rate 75 11/13/19 05:50 Respiratory Rate 18 11/13/19 05:50 Blood Pressure 152/70 11/13/19 05:50 O2 Sat by Pulse Oximetry (%) 96 11/13/19 05:50 Cardiovascular: Yes: Regular Rate and Rhythm Respiratory: Yes: Regular, CTA Bilaterally Gastrointestinal: Yes: Normal Bowel Sounds, Soft Musculoskeletal: Yes: Joint Swelling (dressing over right knee) Edema: No Labs: CBC, BMP 11/12/19 21:30 11/12/19 21:30 Problem List - Problems (1) CAD (coronary artery disease) Assessment/Plan: - Continue Coreg, Asa, Crestor Code(s): I25.10 - ATHSCL HEART DISEASE OF [place] CORONARY ARTERY W/O ANG PCTRS (2) S/P knee replacement Assessment/Plan: - Pain Management per surgeon - ASA 81mg BID - Protonix - Bowel Regimen - Incentive Spirometry - PT -OOB per ortho -SCDs -TEDs Code(s): Z96.659 - PRESENCE OF UNSPECIFIED ARTIFICIAL KNEE JOINT (3) Hyperlipidemia Assessment/Plan: - Continue Crestor - Monitor LFTs Code(s): E78.5 - HYPERLIPIDEMIA, UNSPECIFIED Qualifiers: Hyperlipidemia type: pure hypercholesterolemia Qualified Code(s): E78.00 - Pure hypercholesterolemia, unspecified; E78.0 - Pure hypercholesterolemia (4) Hypertensive cardiovascular disease Assessment/Plan: - Monitor BP - Continue Amlodipine, Losartan - Monitor renal function Code(s): I11.9 - HYPERTENSIVE HEART DISEASE WITHOUT HEART FAILURE Qualifiers: Heart failure presence: without heart failure Qualified Code(s): I11.9 - Hypertensive heart disease without heart failure (5) Anemia Assessment/Plan: stable monitor Code(s): D64.9 - ANEMIA, UNSPECIFIED
[2019-11-13 08:46] LABS: BASO % 0.2 % (0-2.0); HEMATOCRIT 26.5 % (32.4-45.2); HEMOGLOBIN 9.1 GM/dL (10.7-15.3); LYMPH % 11.2 % (8-40); MCH 33.4 pg (25.7-33.7); MCHC 34.2 g/dl (32.0-36.0); MEAN CELL VOLUME 97.5 fl (80-96); MONO % 12.2 % (3.8-10.2); NEUT % 76.4 % (42.8-82.8); PLATELET COUNT 169 K/MM3 (134-434); RBC 2.72 M/mm3 (3.60-5.2); RDW 12.4 % (11.6-15.6); WHITE BLOOD COUNT 10.5 K/mm3 (4.0-10.0)
[2019-11-13 09:15] LABS: ALBUMIN 3.3 g/dl (3.4-5.0); BILIRUBIN,TOTAL 0.6 mg/dL (0.2-1); BLOOD UREA NITROGEN 26.3 mg/dL (7-18); CALCIUM 8.6 mg/dL (8.5-10.1); CREATININE 1.3 mg/dL (0.55-1.3); POTASSIUM 4.5 mmol/L (3.5-5.1); TOT PROT 6.7 g/dl (6.4-8.2)
[2019-11-13] MEDS: CARVEDILOL 25 MG TABLET (FP) PO SCH ×2 (09:29→21:29)
[2019-11-13] MEDS: PANTOPRAZOLE 40 MG TABLET PO SCH (09:29)
[2019-11-13] MEDS: ASPIRIN 81 MG CHEWABLE TABLETS PO SCH ×2 (09:29→21:29)
[2019-11-13] MEDS: LOSARTAN POTASSIUM 50 MG TABLET (FP) PO SCH (09:30)
[2019-11-13] MEDS: amLODIPine BESYLATE 10 MG TABLET (FP) PO SCH (09:30)
[2019-11-13] MEDS: MULTIVITAMINS (DAILY MVI) TABLET (FP) PO SCH (09:30)
[2019-11-13] MEDS: ASCORBIC ACID 500 MG TABLET (FP) PO SCH (09:30)
[2019-11-13] MEDS: CHOLECALCIFEROL (VIT D3) 1,000 UNIT (25 MCG) TABLET PO SCH (09:31)
[2019-11-13] MEDS: SENNOSIDES/DOCUSATE COMBO (SENNA PLUS) TABLET (UD) PO SCH ×2 (09:31→21:30)
[2019-11-13] MEDS ORDERED: HYDROCHLOROTHIAZIDE 12.5 MG CAPSULE (FP) PO SCH (10:00)
[2019-11-13] MEDS ORDERED: PANTOPRAZOLE 40 MG TABLET PO SCH (10:00)
[2019-11-13] MEDS ORDERED: PATIENT'S OWN MEDICATION (NON-FORMULARY) (Amlodipine Bes/Olmesartan Med [Azor 10-40 Mg Tab PO SCH (10:00)
--- NOTE | 2019-11-13 16:24 | PN ---
Progress Note (short form) - Note Progress Note: POD 1, s/p r tkr Pt seen and examined. States she did "okay" overnight. No issues. Tolerating po, voiding. Has been oob to chair and bathroom. Denies cp/sob, n/v/d. Vital Signs Temp 98.3 F 11/13/19 14:48 Pulse 66 11/13/19 14:48 Resp 16 11/13/19 14:48 BP 105/50 L 11/13/19 14:48 Pulse Ox 95 11/13/19 14:48 Intake & Output 11/12/19 11/13/19 11/13/19 23:59 11:59 23:59 Intake Total 1180 1530 50 Output Total 1000 Balance 180 1530 50 Intake: IV 700 750 Lactated Ringers Solution 750 1,000 ml @ 125 mls/hr IV ASDIR HOANG Rx#: [id number] IVPB 100 50 Oral 480 680 Output: Urine 1000 Other: Voiding Method Bedpan Bedpan Toilet # Unmeasured Voids Void 3 2 Bowel Movement No No No # Bowel Movements 0 CBC, BMP 11/13/19 07:23 11/13/19 07:23 Gen: awake, alert, nad Resp: unlabored on RA Ext: RLE with dressing in place, wendi wrap dry however gauze and tegaderms saturated, dressing changed, incision xeroform in place with no drainage. New 4x4as and tegaderms applied. Kerlix and wendi wrap applied. Thigh and calf edematous but soft. bound dps b/l. 5/5 dorsi/plantarflexion, 5/5 ehl/fhl A/P: 69 y/o F w/ PMHx HTN, HLD, CAD, Osetoarthritis Right Knee, now POD 1, s/p Right Total Knee Replacement afebrile, vss Labs reviewed -Amoxicillin 500mg po bid x 8 days -Pain control -DVT PPx: -Chemical: ASA 81 mg po BID x 6 weeks -Mechanical: TOBI's, SCD's -Incentive Spirometry. -PT/OT/Rehab, OOB. -WBAT RLE. -Care per medical hospitalist team. d/w attending DR Zelaya
[2019-11-13] MEDS: ROSUVASTATIN CA 20 MG TABLET (FP) PO SCH (21:29)
[2019-11-13] MEDS: CEPHALEXIN MONOHYDRATE 500 MG CAPSULE (UD) PO SCH (21:29)
[2019-11-13] MEDS ORDERED: AMOXICILLIN 500 MG CAPSULE (FP) PO SCH (22:00)
[2019-11-14] MEDS: oxyCODONE HCL 5 MG TABLET PO PRN (02:56)
[2019-11-14 08:36] LABS: BASO % 0.2 % (0-2.0); HEMATOCRIT 27.1 % (32.4-45.2); HEMOGLOBIN 9.1 GM/dL (10.7-15.3); LYMPH % 8.9 % (8-40); MCH 32.9 pg (25.7-33.7); MCHC 33.6 g/dl (32.0-36.0); MEAN CELL VOLUME 97.9 fl (80-96); MEAN PLT VOLUME 9.6 fl (7.5-11.1); MONO % 10.3 % (3.8-10.2); NEUT % 80.6 % (42.8-82.8); PLATELET COUNT 187 K/MM3 (134-434); RBC 2.77 M/mm3 (3.60-5.2); RDW 12.4 % (11.6-15.6); WHITE BLOOD COUNT 16.7 K/mm3 (4.0-10.0)
[2019-11-14 09:07] LABS: BLOOD UREA NITROGEN 28.4 mg/dL (7-18); CALCIUM 8.3 mg/dL (8.5-10.1); CREATININE 2.2 mg/dL (0.55-1.3); POTASSIUM 4.8 mmol/L (3.5-5.1)
[2019-11-14] MEDS: CHOLECALCIFEROL (VIT D3) 1,000 UNIT (25 MCG) TABLET PO SCH (09:11)
[2019-11-14] MEDS: ONDANSETRON 4 MG/2 ML VIAL IVPUSH PRN (09:29)
[2019-11-14] MEDS: CEPHALEXIN MONOHYDRATE 500 MG CAPSULE (UD) PO SCH ×2 (09:31→21:24)
[2019-11-14] MEDS: CARVEDILOL 25 MG TABLET (FP) PO SCH ×2 (09:31→21:23)
[2019-11-14] MEDS: ASCORBIC ACID 500 MG TABLET (FP) PO SCH (09:32)
[2019-11-14] MEDS: PANTOPRAZOLE 40 MG TABLET PO SCH (09:32)
[2019-11-14] MEDS: LOSARTAN POTASSIUM 50 MG TABLET (FP) PO SCH (09:32)
[2019-11-14] MEDS: MULTIVITAMINS (DAILY MVI) TABLET (FP) PO SCH (09:32)
[2019-11-14] MEDS: amLODIPine BESYLATE 10 MG TABLET (FP) PO SCH (09:32)
[2019-11-14] MEDS: ASPIRIN 81 MG CHEWABLE TABLETS PO SCH ×2 (09:32→21:24)
[2019-11-14] MEDS: SENNOSIDES/DOCUSATE COMBO (SENNA PLUS) TABLET (UD) PO SCH ×2 (09:32→21:24)
--- NOTE | 2019-11-14 13:27 | PN ---
Progress Note, Physician - Current Medication List Current Medications: Active Medications Acetaminophen (Tylenol -) 650 mg PO Q6H PRN PRN Reason: PAIN LEVEL 1-5 Last Admin: 11/12/19 16:10 Dose: 650 mg Documented by: Al Hydroxide/Mg Hydroxide (Mylanta Oral Suspension -) 30 ml PO Q4H PRN PRN Reason: DYSPEPSIA Amlodipine Besylate (Norvasc -) 10 mg PO DAILY [facility] Last Admin: 11/14/19 09:32 Dose: 10 mg Documented by: Ascorbic Acid (Vitamin C -) 500 mg PO DAILY [facility] Last Admin: 11/14/19 09:32 Dose: 500 mg Documented by: Aspirin (Asa -) 81 mg PO BID [facility] Last Admin: 11/14/19 09:32 Dose: 81 mg Documented by: Baclofen (Lioresal -) 10 mg PO HS PRN PRN Reason: CRAMPS Carvedilol (Coreg -) 25 mg PO BID [facility] Last Admin: 11/14/19 09:31 Dose: 25 mg Documented by: Cephalexin HCl (Keflex -) 500 mg PO BID [facility] Last Admin: 11/14/19 09:31 Dose: 500 mg Documented by: Cholecalciferol (Vitamin D3 -) 2,000 unit PO DAILY [facility] Last Admin: 11/13/19 09:31 Dose: 2,000 unit Documented by: Losartan Potassium (Cozaar -) 100 mg PO DAILY [facility] Last Admin: 11/14/19 09:32 Dose: 100 mg Documented by: Magnesium Hydroxide (Milk Of Magnesia -) 30 ml PO PRN PRN PRN Reason: CONSTIPATION Multivitamins/Minerals/Vitamin C (Tab-A-Vit -) 1 tab PO DAILY [facility] Last Admin: 11/14/19 09:32 Dose: 1 tab Documented by: Ondansetron HCl (Zofran Injection) 4 mg IVPUSH Q6H PRN PRN Reason: NAUSEA Last Admin: 11/14/19 09:29 Dose: 4 mg Documented by: Oxycodone HCl (Roxicodone -) 5 mg PO Q4H PRN PRN Reason: PAIN LEVEL 1-5 Last Admin: 11/12/19 16:10 Dose: 5 mg Documented by: Oxycodone HCl (Roxicodone -) 10 mg PO Q4H PRN PRN Reason: PAIN LEVEL 6-10 Last Admin: 11/14/19 02:56 Dose: 10 mg Documented by: Pantoprazole Sodium (Protonix -) 40 mg PO DAILY [facility] Last Admin: 11/14/19 09:32 Dose: 40 mg Documented by: Rosuvastatin Calcium (Crestor -) 20 mg PO HS [facility] Last Admin: 11/13/19 21:29 Dose: 20 mg Documented by: Senna/Docusate Sodium (Pericolace -) 2 tablet PO BID [facility] Last Admin: 11/14/19 09:32 Dose: 2 tablet Documented by: - Objective Vital Signs: Vital Signs Temperature 97.8 F 11/14/19 09:00 Pulse Rate 72 11/14/19 09:00 Respiratory Rate 18 11/14/19 09:00 Blood Pressure 109/57 L 11/14/19 09:00 O2 Sat by Pulse Oximetry (%) 95 11/14/19 09:00 Cardiovascular: Yes: Regular Rate and Rhythm Respiratory: Yes: Regular, CTA Bilaterally Gastrointestinal: Yes: Normal Bowel Sounds, Soft Edema: Yes Edema: RLE: 1+ Labs: CBC, BMP 11/14/19 07:45 11/14/19 07:45 Problem List - Problems (1) CAD (coronary artery disease) Assessment/Plan: - Continue Coreg, Asa, Crestor Code(s): I25.10 - ATHSCL HEART DISEASE OF [place] CORONARY ARTERY W/O ANG PCTRS (2) S/P knee replacement Assessment/Plan: - Pain Management per surgeon - ASA 81mg BID - Protonix - Bowel Regimen - Incentive Spirometry - PT -OOB per ortho -SCDs -TEDs Code(s): Z96.659 - PRESENCE OF UNSPECIFIED ARTIFICIAL KNEE JOINT (3) Hyperlipidemia Assessment/Plan: - Continue Crestor - Monitor LFTs Code(s): E78.5 - HYPERLIPIDEMIA, UNSPECIFIED Qualifiers: Hyperlipidemia type: pure hypercholesterolemia Qualified Code(s): E78.00 - Pure hypercholesterolemia, unspecified; E78.0 - Pure hypercholesterolemia (4) Hypertensive cardiovascular disease Assessment/Plan: - Monitor BP - Continue Amlodipine decrease to 5 - Losartan - Monitor renal function Code(s): I11.9 - HYPERTENSIVE HEART DISEASE WITHOUT HEART FAILURE Qualifiers: Heart failure presence: without heart failure Qualified Code(s): I11.9 - Hypertensive heart disease without heart failure (5) Anemia Code(s): D64.9 - ANEMIA, UNSPECIFIED (6) Leukocytosis Assessment/Plan: -cxr id consult monitor afebrile Code(s): D72.829 - ELEVATED WHITE BLOOD CELL COUNT, UNSPECIFIED
[2019-11-14] MEDS ORDERED: amLODIPine BESYLATE 5 MG TABLET (FP) PO SCH (13:28)
[2019-11-14] MEDS: ROSUVASTATIN CA 20 MG TABLET (FP) PO SCH (21:24)
[2019-11-15 08:46] LABS: ALBUMIN 2.7 g/dl (3.4-5.0); BILIRUBIN,TOTAL 0.8 mg/dL (0.2-1); BLOOD UREA NITROGEN 38.1 mg/dL (7-18); CALCIUM 8.1 mg/dL (8.5-10.1); CREATININE 2.5 mg/dL (0.55-1.3); POTASSIUM 4.1 mmol/L (3.5-5.1); TOT PROT 6.2 g/dl (6.4-8.2)
[2019-11-15] MEDS: CEPHALEXIN MONOHYDRATE 500 MG CAPSULE (UD) PO SCH ×2 (09:10→21:49)
[2019-11-15] MEDS: PANTOPRAZOLE 40 MG TABLET PO SCH ×2 (09:10→21:49)
[2019-11-15] MEDS: ASCORBIC ACID 500 MG TABLET (FP) PO SCH (09:10)
[2019-11-15] MEDS: MULTIVITAMINS (DAILY MVI) TABLET (FP) PO SCH (09:10)
[2019-11-15] MEDS: CHOLECALCIFEROL (VIT D3) 1,000 UNIT (25 MCG) TABLET PO SCH (09:11)
[2019-11-15] MEDS: ASPIRIN 81 MG CHEWABLE TABLETS PO SCH (09:11)
[2019-11-15] MEDS: CARVEDILOL 25 MG TABLET (FP) PO SCH ×2 (09:11→21:49)
[2019-11-15] MEDS: SENNOSIDES/DOCUSATE COMBO (SENNA PLUS) TABLET (UD) PO SCH ×2 (09:12→21:57)
--- NOTE | 2019-11-15 09:54 | PN ---
Progress Note, Physician - Current Medication List Current Medications: Active Medications Acetaminophen (Tylenol -) 650 mg PO Q6H PRN PRN Reason: PAIN LEVEL 1-5 Last Admin: 11/12/19 16:10 Dose: 650 mg Documented by: Al Hydroxide/Mg Hydroxide (Mylanta Oral Suspension -) 30 ml PO Q4H PRN PRN Reason: DYSPEPSIA Last Admin: 11/14/19 17:10 Dose: 30 ml Documented by: Ascorbic Acid (Vitamin C -) 500 mg PO DAILY [facility] Last Admin: 11/15/19 09:10 Dose: 500 mg Documented by: Aspirin (Asa -) 81 mg PO BID [facility] Last Admin: 11/15/19 09:11 Dose: 81 mg Documented by: Baclofen (Lioresal -) 10 mg PO HS PRN PRN Reason: CRAMPS Carvedilol (Coreg -) 25 mg PO BID [facility] Last Admin: 11/15/19 09:11 Dose: 25 mg Documented by: Cephalexin HCl (Keflex -) 500 mg PO BID [facility] Last Admin: 11/15/19 09:10 Dose: 500 mg Documented by: Cholecalciferol (Vitamin D3 -) 2,000 unit PO DAILY [facility] Last Admin: 11/15/19 09:11 Dose: 2,000 unit Documented by: Potassium Chloride 10 meq/ (Sodium Chloride) 1,005 mls @ 83 mls/hr IVPB Q12H [facility] Magnesium Hydroxide (Milk Of Magnesia -) 30 ml PO PRN PRN PRN Reason: CONSTIPATION Multivitamins/Minerals/Vitamin C (Tab-A-Vit -) 1 tab PO DAILY [facility] Last Admin: 11/15/19 09:10 Dose: 1 tab Documented by: Ondansetron HCl (Zofran Injection) 4 mg IVPUSH Q6H PRN PRN Reason: NAUSEA Last Admin: 11/14/19 09:29 Dose: 4 mg Documented by: Oxycodone HCl (Roxicodone -) 5 mg PO Q4H PRN PRN Reason: PAIN LEVEL 1-5 Last Admin: 11/12/19 16:10 Dose: 5 mg Documented by: Oxycodone HCl (Roxicodone -) 10 mg PO Q4H PRN PRN Reason: PAIN LEVEL 6-10 Last Admin: 11/14/19 02:56 Dose: 10 mg Documented by: Pantoprazole Sodium (Protonix -) 40 mg PO DAILY [facility] Last Admin: 11/15/19 09:10 Dose: 40 mg Documented by: Rosuvastatin Calcium (Crestor -) 20 mg PO [facility] Last Admin: 11/14/19 21:24 Dose: 20 mg Documented by: Senna/Docusate Sodium (Pericolace -) 2 tablet PO BID [facility] Last Admin: 11/15/19 09:12 Dose: 2 tablet Documented by: - Objective Vital Signs: Vital Signs Temperature 98.9 F 11/15/19 06:00 Pulse Rate 53 L 11/15/19 06:00 Respiratory Rate 18 11/15/19 06:00 Blood Pressure 99/49 L 11/15/19 06:00 O2 Sat by Pulse Oximetry (%) 94 L 11/15/19 06:00 Cardiovascular: Yes: Regular Rate and Rhythm Respiratory: Yes: Regular, CTA Bilaterally Gastrointestinal: Yes: Normal Bowel Sounds, Soft Edema: Yes Edema: RLE: 1+ Wound/Incision: Yes: Other (dressing with somme blood) Labs: CBC, BMP 11/15/19 07:41 Problem List - Problems (1) CAD (coronary artery disease) Assessment/Plan: - Continue Coreg, - hold Asa due to anemia - Crestor Code(s): I25.10 - ATHSCL HEART DISEASE OF [place] CORONARY ARTERY W/O ANG PCTRS (2) S/P knee replacement Assessment/Plan: - Pain Management per surgeon - hold ASA 81mg BID - Protonix - Bowel Regimen - Incentive Spirometry - PT -OOB per ortho -SCDs -TEDs Code(s): Z96.659 - PRESENCE OF UNSPECIFIED ARTIFICIAL KNEE JOINT (3) Hyperlipidemia Assessment/Plan: - Continue Crestor - Monitor LFTs Code(s): E78.5 - HYPERLIPIDEMIA, UNSPECIFIED Qualifiers: Hyperlipidemia type: pure hypercholesterolemia Qualified Code(s): E78.00 - Pure hypercholesterolemia, unspecified; E78.0 - Pure hypercholesterolemia (4) Hypertensive cardiovascular disease Assessment/Plan: - Monitor BP - Continue Amlodipine decrease to 5 - Losartan - Monitor renal function Code(s): I11.9 - HYPERTENSIVE HEART DISEASE WITHOUT HEART FAILURE Qualifiers: Heart failure presence: without heart failure Qualified Code(s): I11.9 - Hypertensive heart disease without heart failure (5) Anemia Assessment/Plan: hgb droped transfuse prbc ppi gi consult monitor Code(s): D64.9 - ANEMIA, UNSPECIFIED (6) Leukocytosis Assessment/Plan: -cxr nad id consult monitor afebrile Code(s): D72.829 - ELEVATED WHITE BLOOD CELL COUNT, UNSPECIFIED (7) DEB (acute kidney injury) Assessment/Plan: hold arb hold norvasc due to low bp ivf renal consult Code(s): N17.9 - ACUTE KIDNEY FAILURE, UNSPECIFIED
[2019-11-15 10:12] LABS: BASO % 0.2 % (0-2.0); EOS % 0.1 % (0-4.5); HEMATOCRIT 22.3 % (32.4-45.2); HEMOGLOBIN 7.8 GM/dL (10.7-15.3); LYMPH % 7.5 % (8-40); MCH 33.5 pg (25.7-33.7); MCHC 34.9 g/dl (32.0-36.0); MEAN CELL VOLUME 95.9 fl (80-96); MEAN PLT VOLUME 10.1 fl (7.5-11.1); MONO % 8.1 % (3.8-10.2); NEUT % 84.1 % (42.8-82.8); PLATELET COUNT 150 K/MM3 (134-434); RBC 2.33 M/mm3 (3.60-5.2); RDW 12.3 % (11.6-15.6); WHITE BLOOD COUNT 10.8 K/mm3 (4.0-10.0)
--- NOTE | 2019-11-15 12:04 | CON.ID ---
Consult Referred by:: dr peñaloza Reason for Consultation:: leukocytosis - History of Present Illness Chief Complaint: s/p knee surgery History of Present Illness: admitted for right TKR on 11/11 noted to have leukocytosis on 11/13 as well as anemia postop no fevers no sob ambulating to bathroom with walker +BM this am - History Source History Provided By: Patient Limitations to Obtaining History: No Limitations - Past Medical History Cardio/Vascular: Yes: CAD, HTN, Hyperlipdemia Rheumatology: Yes: Other (OA right knee) - Alcohol/Substance Use Hx Alcohol Use: No - Smoking History Smoking history: Never smoked Have you smoked in the past 12 months: No - Social History Usual Living Arrangement: With Spouse ADL: Independent History of Recent Travel: No Home Medications - Allergies Allergies/Adverse Reactions: Allergies Allergy/AdvReac Type Severity Reaction Status Date / Time No Known Drug Allergies Allergy Verified 11/12/19 09:43 - Home Medications Home Medications: Ambulatory Orders Amlodipine Bes/Olmesartan Med [Dustin 10-40 mg Tablet] 1 each PO DAILY 01/18/17 Aspirin Coated [Ecotrin -] 81 mg PO DAILY 01/18/17 Carvedilol Phosphate [Coreg Cr -] 80 mg PO DAILY 01/18/17 Hydrochlorothiazide [Hctz -] 12.5 mg PO DAILY 01/18/17 Pantoprazole Sodium [Protonix -] 40 mg PO DAILY #30 tablet.ec 04/08/18 Rosuvastatin [Crestor -] 20 mg PO HS #30 tablet 04/08/18 Ascorbate Calcium [Vitamin C] 500 mg PO DAILY 11/11/19 Baclofen 10 mg PO HS PRN 11/11/19 Cholecalciferol (Vitamin D3) [Vitamin D3] 2,000 unit PO DAILY 11/11/19 Family Medical History Family History: Denies Review of Systems - Review of Systems Constitutional: reports: No Symptoms. denies: Chills, Fever Eyes: reports: No Symptoms HENT: reports: No Symptoms Neck: reports: No Symptoms Cardiovascular: reports: No Symptoms. denies: Chest Pain Respiratory: reports: No Symptoms. denies: Cough, SOB Gastrointestinal: reports: No Symptoms. denies: Abdominal Pain Genitourinary: reports: No Symptoms Musculoskeletal: reports: Joint Pain (knee pain) Physical Exam Vital Signs: Vital Signs Temperature 98.9 F 11/15/19 06:00 Pulse Rate 53 L 11/15/19 06:00 Respiratory Rate 18 11/15/19 06:00 Blood Pressure 99/49 L 11/15/19 06:00 O2 Sat by Pulse Oximetry (%) 94 L 11/15/19 06:00 Constitutional: Yes: Well Nourished, No Distress, Calm Eyes: Yes: Conjunctiva Clear HENT: Yes: Atraumatic, Normocephalic Neck: Yes: Supple, Trachea Midline Cardiovascular: Yes: Regular Rate and Rhythm Respiratory: Yes: Regular, CTA Bilaterally Gastrointestinal: Yes: Normal Bowel Sounds, Soft ...Rectal Exam: Yes: Deferred Extremities: Yes: Other (right knee incision clean and dry no erythema) Psychiatric: Yes: Alert Labs: CBC, BMP 11/15/19 07:41 11/15/19 07:41 Imaging - Results Chest X-ray: Report Reviewed, Image Reviewed Problem List - Problems (1) Leukocytosis Code(s): D72.829 - ELEVATED WHITE BLOOD CELL COUNT, UNSPECIFIED (2) Anemia Code(s): D64.9 - ANEMIA, UNSPECIFIED (3) DEB (acute kidney injury) Code(s): N17.9 - ACUTE KIDNEY FAILURE, UNSPECIFIED (4) S/P knee replacement Code(s): Z96.659 - PRESENCE OF UNSPECIFIED ARTIFICIAL KNEE JOINT Qualifiers: Laterality: right Qualified Code(s): Z96.651 - Presence of right artificial knee joint Assessment/Plan leukocytosis has improved, suspect postop no signs of localizing infection or fever on keflex per ortho refusing blood transfusion deb resolving as well please call back if needed
[2019-11-15] MEDS: POTASSIUM CHLORIDE 10 MEQ in SODIUM CHLORIDE 0.45% 1,000 ML IVPB SCH ×2 (13:39→21:56)
[2019-11-15] MEDS ORDERED: IRON SUCROSE INJECTION 200 MG in SODIUM CHLORIDE 90 ML IVPB ONE (15:00)
[2019-11-15 16:16] LABS: BLOOD UREA NITROGEN 42.3 mg/dL (7-18); CALCIUM 7.9 mg/dL (8.5-10.1); CREATININE 2.3 mg/dL (0.55-1.3); POTASSIUM 4.5 mmol/L (3.5-5.1)
[2019-11-15] MEDS: ACETAMINOPHEN 325 MG TABLET (FP) PO PRN (21:48)
[2019-11-15] MEDS: ROSUVASTATIN CA 20 MG TABLET (FP) PO SCH (21:49)
[2019-11-16] MEDS: POTASSIUM CHLORIDE 10 MEQ in SODIUM CHLORIDE 0.45% 1,000 ML IVPB SCH ×2 (03:10→22:00)
--- NOTE | 2019-11-16 09:03 | PN ---
Progress Note, Physician History of Present Illness: no complaints x knee pain - Current Medication List Current Medications: Active Medications Acetaminophen (Tylenol -) 650 mg PO Q6H PRN PRN Reason: PAIN LEVEL 1-5 Last Admin: 11/15/19 21:48 Dose: 650 mg Documented by: Al Hydroxide/Mg Hydroxide (Mylanta Oral Suspension -) 30 ml PO Q4H PRN PRN Reason: DYSPEPSIA Last Admin: 11/14/19 17:10 Dose: 30 ml Documented by: Ascorbic Acid (Vitamin C -) 500 mg PO DAILY [facility] Last Admin: 11/15/19 09:10 Dose: 500 mg Documented by: Baclofen (Lioresal -) 10 mg PO HS PRN PRN Reason: CRAMPS Carvedilol (Coreg -) 25 mg PO BID [facility] Last Admin: 11/15/19 21:49 Dose: 25 mg Documented by: Cephalexin HCl (Keflex -) 500 mg PO BID [facility] Last Admin: 11/15/19 21:49 Dose: 500 mg Documented by: Cholecalciferol (Vitamin D3 -) 2,000 unit PO DAILY [facility] Last Admin: 11/15/19 09:11 Dose: 2,000 unit Documented by: Potassium Chloride 10 meq/ (Sodium Chloride) 1,005 mls @ 83 mls/hr IVPB Q12H [facility] Last Admin: 11/16/19 03:10 Dose: 83 mls/hr Documented by: Magnesium Hydroxide (Milk Of Magnesia -) 30 ml PO PRN PRN PRN Reason: CONSTIPATION Multivitamins/Minerals/Vitamin C (Tab-A-Vit -) 1 tab PO DAILY [facility] Last Admin: 11/15/19 09:10 Dose: 1 tab Documented by: Ondansetron HCl (Zofran Injection) 4 mg IVPUSH Q6H PRN PRN Reason: NAUSEA Last Admin: 11/14/19 09:29 Dose: 4 mg Documented by: Pantoprazole Sodium (Protonix -) 40 mg PO BID [facility] Last Admin: 11/15/19 21:49 Dose: 40 mg Documented by: Rosuvastatin Calcium (Crestor -) 20 mg PO HS [facility] Last Admin: 11/15/19 21:49 Dose: 20 mg Documented by: Senna/Docusate Sodium (Pericolace -) 2 tablet PO BID [facility] Last Admin: 11/15/19 21:57 Dose: Not Given Documented by: - Objective Vital Signs: Vital Signs Temperature 99.7 F H 11/15/19 21:58 Pulse Rate 90 11/15/19 21:58 Respiratory Rate 18 11/15/19 21:58 Blood Pressure 124/62 11/15/19 21:58 O2 Sat by Pulse Oximetry (%) 94 L 11/15/19 21:58 Cardiovascular: Yes: Regular Rate and Rhythm Respiratory: Yes: Regular, CTA Bilaterally Gastrointestinal: Yes: Normal Bowel Sounds, Soft. No: Tenderness Musculoskeletal: Yes: Joint Stiffness, Joint Swelling Edema: No Problem List - Problems (1) CAD (coronary artery disease) Assessment/Plan: - Continue Coreg, - hold Asa due to anemia - Crestor Code(s): I25.10 - ATHSCL HEART DISEASE OF [place] CORONARY ARTERY W/O ANG PCTRS (2) S/P knee replacement Assessment/Plan: - Pain Management per surgeon - hold ASA 81mg BID - Protonix - Bowel Regimen - Incentive Spirometry - PT -OOB per ortho -SCDs -TEDs Code(s): Z96.659 - PRESENCE OF UNSPECIFIED ARTIFICIAL KNEE JOINT (3) Hyperlipidemia Assessment/Plan: - Continue Crestor - Monitor LFTs Code(s): E78.5 - HYPERLIPIDEMIA, UNSPECIFIED Qualifiers: Hyperlipidemia type: pure hypercholesterolemia Qualified Code(s): E78.00 - Pure hypercholesterolemia, unspecified; E78.0 - Pure hypercholesterolemia (4) Hypertensive cardiovascular disease Assessment/Plan: - Monitor BP - Continue Amlodipine decrease to 5 - Losartan - Monitor renal function Code(s): I11.9 - HYPERTENSIVE HEART DISEASE WITHOUT HEART FAILURE Qualifiers: Heart failure presence: without heart failure Qualified Code(s): I11.9 - Hypertensive heart disease without heart failure (5) Anemia Assessment/Plan: hgb droped transfuse prbc--refuses received venofer ppi gi consult monitor Code(s): D64.9 - ANEMIA, UNSPECIFIED (6) Leukocytosis Assessment/Plan: -cxr nad id consult monitor afebrile Code(s): D72.829 - ELEVATED WHITE BLOOD CELL COUNT, UNSPECIFIED (7) DEB (acute kidney injury) Assessment/Plan: hold arb hold norvasc due to low bp ivf renal consult Code(s): N17.9 - ACUTE KIDNEY FAILURE, UNSPECIFIED
[2019-11-16 09:11] LABS: BLOOD UREA NITROGEN 36.3 mg/dL (7-18); CALCIUM 8.1 mg/dL (8.5-10.1); CREATININE 1.5 mg/dL (0.55-1.3); POTASSIUM 4.2 mmol/L (3.5-5.1)
[2019-11-16 09:16] LABS: BASO % 0.3 % (0-2.0); EOS % 0.1 % (0-4.5); HEMATOCRIT 21.9 % (32.4-45.2); HEMOGLOBIN 7.5 GM/dL (10.7-15.3); LYMPH % 8.5 % (8-40); MCH 32.6 pg (25.7-33.7); MCHC 34.2 g/dl (32.0-36.0); MEAN CELL VOLUME 95.3 fl (80-96); MEAN PLT VOLUME 9.2 fl (7.5-11.1); MONO % 8.8 % (3.8-10.2); NEUT % 82.3 % (42.8-82.8); PLATELET COUNT 200 K/MM3 (134-434); RDW 12.3 % (11.6-15.6); WHITE BLOOD COUNT 9.3 K/mm3 (4.0-10.0)
[2019-11-16] MEDS: CEPHALEXIN MONOHYDRATE 500 MG CAPSULE (UD) PO SCH ×2 (09:54→21:10)
[2019-11-16] MEDS: PANTOPRAZOLE 40 MG TABLET PO SCH ×2 (09:54→21:10)
[2019-11-16] MEDS: ASCORBIC ACID 500 MG TABLET (FP) PO SCH (09:54)
[2019-11-16] MEDS: CARVEDILOL 25 MG TABLET (FP) PO SCH ×2 (09:54→21:10)
[2019-11-16] MEDS: SENNOSIDES/DOCUSATE COMBO (SENNA PLUS) TABLET (UD) PO SCH ×2 (09:55→21:11)
[2019-11-16] MEDS: MULTIVITAMINS (DAILY MVI) TABLET (FP) PO SCH (09:55)
[2019-11-16] MEDS: CHOLECALCIFEROL (VIT D3) 1,000 UNIT (25 MCG) TABLET PO SCH (09:55)
--- NOTE | 2019-11-16 10:02 | PN ---
Progress Note (short form) - Note Progress Note: 69yo F s/p Rt TKA, pt seen and examined at bedside. Pt was noted to have drop in HCT and medicine recommended blood transfusion that pt refused. Pt states she is feeling well and only complains of pain in her knee with ambulating. Pt admits that she lives with her older in a 3 story walk up so being home will be difficult. Pt denies fever, chills, n/v. Denies dizziness or weakness. Last Vital Signs Temp Pulse Resp BP Pulse Ox 99.7 F H 90 18 124/62 94 L 11/15/19 21:58 11/15/19 21:58 11/15/19 21:58 11/15/19 21:58 11/15/19 21:58 CBC, BMP 11/16/19 07:38 11/16/19 07:38 PE: Gen: A&O x3 Resp: Breathing comfortably RLE: incision clean with no erythema or discharge. No weakness or numbness. Problem List - Problems (1) S/P knee replacement Assessment/Plan: Plan -pt appears stable from a surgery standpoint, and is cleared for discharge to rehab from ortho standpoint. -pt should follow up with Dr. Zelaya in 1 week for outpatient follow up. -pt discussed with PCP Dr. Hinojosa who agrees with pt HCT being stable. Pt seen and discussed with Dr. Zelaya who agrees with plan Code(s): Z96.659 - PRESENCE OF UNSPECIFIED ARTIFICIAL KNEE JOINT Qualifiers: Laterality: right Qualified Code(s): Z96.651 - Presence of right artificial knee joint
--- NOTE | 2019-11-16 12:07 | CON.NEP ---
Consult Consult Specialty:: Nephrology Referred by:: Dr. Hinojosa Reason for Consultation:: Acute kidney injury - History of Present Illness Chief Complaint: Knee replacement History of Present Illness: This is a 69 year old woman with history of hypertension, hyperlipidemia, CAD and osteoarthritis now s/p Right knee replacement and found to have acute kidney injury with BUN/Cr of 38/2.5. Seen and examined at the bedside. Awake and alert. Continues to have pain in knee. No shortness of breath or chest pain. Making urine. Has some leg swelling. Was on NSAIDs for pain control. Denies any flank pain. Able to tolerate oral feeds. No WHEELER, confusion or lethargy. - History Source History Provided By: Patient Limitations to Obtaining History: No Limitations - Past Medical History Cardio/Vascular: Yes: CAD, HTN, Hyperlipdemia - Alcohol/Substance Use Hx Alcohol Use: No - Smoking History Smoking history: Never smoked Have you smoked in the past 12 months: No Home Medications - Allergies Allergies/Adverse Reactions: Allergies Allergy/AdvReac Type Severity Reaction Status Date / Time No Known Drug Allergies Allergy Verified 11/12/19 09:43 - Home Medications Home Medications: Ambulatory Orders Amlodipine Bes/Olmesartan Med [Dustin 10-40 mg Tablet] 1 each PO DAILY 01/18/17 Aspirin Coated [Ecotrin -] 81 mg PO DAILY 01/18/17 Carvedilol Phosphate [Coreg Cr -] 80 mg PO DAILY 01/18/17 Hydrochlorothiazide [Hctz -] 12.5 mg PO DAILY 01/18/17 Pantoprazole Sodium [Protonix -] 40 mg PO DAILY #30 tablet.ec 04/08/18 Rosuvastatin [Crestor -] 20 mg PO HS #30 tablet 04/08/18 Ascorbate Calcium [Vitamin C] 500 mg PO DAILY 11/11/19 Baclofen 10 mg PO HS PRN 11/11/19 Cholecalciferol (Vitamin D3) [Vitamin D3] 2,000 unit PO DAILY 11/11/19 Family Medical History Family History: Unremarkable Review of Systems - Review of Systems Constitutional: reports: No Symptoms Eyes: reports: No Symptoms HENT: reports: No Symptoms Neck: reports: No Symptoms Cardiovascular: reports: No Symptoms Respiratory: reports: No Symptoms Gastrointestinal: reports: No Symptoms Genitourinary: reports: No Symptoms Musculoskeletal: reports: Joint Pain, Joint Swelling Neurological: reports: No Symptoms Nephrology Consult - Height Height: 5 ft 6 in - Weight Weight: 99.79 kg - BMI Body Mass Index (BMI): 35.5 - Lab Results CBC,BMP: CBC, BMP 11/16/19 07:38 11/16/19 07:38 Anion Gap: Anion Gap Anion Gap 7 MMOL/L (8-16) L 11/16/19 07:38 - Physical Examination Vital Signs: Vital Signs Temperature 99.7 F H 11/15/19 21:58 Pulse Rate 90 11/15/19 21:58 Respiratory Rate 18 11/15/19 21:58 Blood Pressure 124/62 11/15/19 21:58 O2 Sat by Pulse Oximetry (%) 94 L 11/15/19 21:58 Assessment/Plan 69 year old woman with history of hypertension, hyperlipidemia, CAD and osteoarthritis now s/p Right knee replacement and found to have acute kidney injury with BUN/Cr of 38/2.5. 1. Acute kidney injury likely due to normotensive ATN (NSAID + ARB and diuretics) vs. AIN 2. Osteoarthritis s/p knee replacement 3. Hyponatremia 4. Anemia Renal function improving. Check urine studies including eosinophils and renal US Continue isotonic IV fluids at 2L daily Continue to hold diuretics/ARB and NSAIDs Oral intake as tolerated There is no acute indication for renal replacement therapy Trend Renal function and electrolytes daily Check iron studies and stool occult blood Check CK levels given pt is on statin Thank you Orlando Garcia DO
[2019-11-16 15:17] LABS: URINE APPEARANCE CLEAR; URINE BILIRUBIN NEGATIVE (NEGATIVE); URINE COLOR YELLOW; URINE GLUCOSE (UA) NEGATIVE (NEGATIVE); URINE KETONE NEGATIVE (NEGATIVE); URINE LEUK ESTERASE NEGATIVE (NEGATIVE); URINE NITRITE NEGATIVE (NEGATIVE); URINE PROTEIN NEGATIVE (NEGATIVE); URINE UROBILINOGEN 0.2 mg/dL (0.2-1.0)
--- NOTE | 2019-11-16 15:58 | CON.GI ---
Consult Consult Specialty:: gastroenterology Reason for Consultation:: Anemia - History of Present Illness Chief Complaint: s/p knee sx History of Present Illness: Pt seen and examined by Dr Collado. This is a 69 y/o female with a PMHx significant for anemia of childhood, HTN, HLD, CAD, Osetoarthritis Right Knee. s/p Right Total Knee Replacement. Hgb/Hct trending down 7.5/21.9. Pt refusing Blood transfusion. Last EGD done 10/24/2018 . Last colonoscopy done 02/23/2019 with hyperplastic polyp x 2 and L colon diverticulosis. Pt denies abdominal pain, diarhea, constipation, rectal bleeding, melena. - History Source History Provided By: Patient Limitations to Obtaining History: No Limitations - Past Medical History Cardio/Vascular: Yes: CAD, HTN, Hyperlipdemia Rheumatology: Yes: Other (OA right knee) - Alcohol/Substance Use Hx Alcohol Use: No - Smoking History Smoking history: Never smoked Have you smoked in the past 12 months: No - Social History Usual Living Arrangement: With Spouse ADL: Independent History of Recent Travel: No Home Medications - Allergies Allergies/Adverse Reactions: Allergies Allergy/AdvReac Type Severity Reaction Status Date / Time No Known Drug Allergies Allergy Verified 11/12/19 09:43 - Home Medications Home Medications: Ambulatory Orders Amlodipine Bes/Olmesartan Med [Dustin 10-40 mg Tablet] 1 each PO DAILY 01/18/17 Aspirin Coated [Ecotrin -] 81 mg PO DAILY 01/18/17 Carvedilol Phosphate [Coreg Cr -] 80 mg PO DAILY 01/18/17 Hydrochlorothiazide [Hctz -] 12.5 mg PO DAILY 01/18/17 Pantoprazole Sodium [Protonix -] 40 mg PO DAILY #30 tablet.ec 04/08/18 Rosuvastatin [Crestor -] 20 mg PO HS #30 tablet 04/08/18 Ascorbate Calcium [Vitamin C] 500 mg PO DAILY 11/11/19 Baclofen 10 mg PO HS PRN 11/11/19 Cholecalciferol (Vitamin D3) [Vitamin D3] 2,000 unit PO DAILY 11/11/19 Family Medical History Family History: Denies Review of Systems - Review of Systems Cardiovascular: reports: No Symptoms Respiratory: reports: No Symptoms Gastrointestinal: reports: Bloating. denies: Abdominal Pain, Constipation, Diarrhea, Dysphagia, Indigestion, Melena, Nausea, Rectal Bleeding, Vomiting, Vomiting Blood Physical Exam-GI Vital Signs: Vital Signs Temperature 99.3 F 11/16/19 14:27 Pulse Rate 87 11/16/19 14:27 Respiratory Rate 18 11/16/19 14:27 Blood Pressure 141/61 11/16/19 14:27 O2 Sat by Pulse Oximetry (%) 98 11/16/19 14:27 Constitutional: Yes: Well Nourished, No Distress, Calm Eyes: Yes: WNL, Conjunctiva Clear, EOM Intact HENT: Yes: WNL, Atraumatic, Normocephalic Neck: Yes: Supple, Trachea Midline Cardiovascular: Yes: WNL, Regular Rate and Rhythm Respiratory: Yes: WNL, Regular, CTA Bilaterally Gastrointestinal Inspection: Yes: WNL. No: Distention ...Auscultate: Yes: Normoactive Bowel Sounds ...Palpate: Yes: Soft. No: Firm/Rigid, Guarding, Hepatomegaly, Mass, Pulsatile Mass, Splenomegaly, Tenderness Labs: CBC, BMP 11/16/19 07:38 11/16/19 07:38 Problem List - Problems (1) Anemia Assessment/Plan: Plan discussed with Dr Collado Ferrous sulfate 325mg TID Anemia work up- B12, folic acid,haptoglobin, antigliadin igg,iga, transglutaminase igg,iga,reticulocyte count, iron, ferritin, TIBC, HGB electropharesis. Plan for GI work up as an Outpatient Maintain on PPI stool occult blood test Code(s): D64.9 - ANEMIA, UNSPECIFIED
[2019-11-16] MEDS: ACETAMINOPHEN 325 MG TABLET (FP) PO PRN ×2 (16:35→19:38)
--- NOTE | 2019-11-16 18:21 | PATH ---
Surgical Pathology Report Patient Name: MEL OLVERA Med. Rec. #: [id number] /Age/Gender: 1950 (Age: 69) / F Account: [id number] Location: [address] [place] [address]/[facility] Taken: 11/12/2019 Received: 11/13/2019 Reported: 11/16/2019 Physicians: Theodore Zelaya M.D. Specimen(s) Received RIGHT KNEE BONE AND TISSUE Clinical History Unilateral primary osteoarthritis, right knee Final Diagnosis RIGHT KNEE BONE AND TISSUE, RESECTION: DEGENERATIVE JOINT DISEASE, RIGHT KNEE Electronically Signed Tonya Flaherty M.D. Gross Description Received in formalin labeled "right knee bone," is a 7.5 x 5.0 x 4.0 cm aggregate of multiple portions of bone and soft tissue, consistent with knee bones. The articular surfaces of the bone are chapman-yellow and diffusely granular. The underlying trabecular bone is yellow and hard. Textile Screen Maker sections are submitted in one cassette, following decalcification. [facility]ADI/11/13/2019 tray/11/13/2019
[2019-11-16] MEDS: oxyCODONE HCL 5 MG TABLET PO PRN (19:38)
[2019-11-16] MEDS: ROSUVASTATIN CA 20 MG TABLET (FP) PO SCH (21:11)
[2019-11-17] MEDS: ACETAMINOPHEN 325 MG TABLET (FP) PO PRN ×2 (01:16→06:59)
[2019-11-17] MEDS: oxyCODONE HCL 5 MG TABLET PO PRN ×2 (01:17→06:59)
[2019-11-17] MEDS: POTASSIUM CHLORIDE 10 MEQ in SODIUM CHLORIDE 0.45% 1,000 ML IVPB SCH (02:15)
[2019-11-17 08:02] LABS: BASO % 0.2 % (0-2.0); EOS % 0.5 % (0-4.5); HEMATOCRIT 22.5 % (32.4-45.2); HEMOGLOBIN 7.5 GM/dL (10.7-15.3); LYMPH % 12.9 % (8-40); MCH 32.2 pg (25.7-33.7); MCHC 33.3 g/dl (32.0-36.0); MEAN CELL VOLUME 96.6 fl (80-96); MEAN PLT VOLUME 8.1 fl (7.5-11.1); MONO % 11.1 % (3.8-10.2); NEUT % 75.3 % (42.8-82.8); PLATELET COUNT 234 K/MM3 (134-434); RBC 2.33 M/mm3 (3.60-5.2); RDW 12.7 % (11.6-15.6)
[2019-11-17 08:45] LABS: ALBUMIN 2.5 g/dl (3.4-5.0); BILIRUBIN,TOTAL 0.6 mg/dL (0.2-1); BLOOD UREA NITROGEN 22.1 mg/dL (7-18); CALCIUM 8.1 mg/dL (8.5-10.1); MAGNESIUM 2.3 mg/dL (1.8-2.4); PHOSPHOROUS 2.8 mg/dL (2.5-4.9); POTASSIUM 4.2 mmol/L (3.5-5.1); TOT PROT 6.3 g/dl (6.4-8.2)
[2019-11-17] MEDS: PANTOPRAZOLE 40 MG TABLET PO SCH (09:50)
[2019-11-17] MEDS: ASCORBIC ACID 500 MG TABLET (FP) PO SCH (09:50)
[2019-11-17] MEDS: MULTIVITAMINS (DAILY MVI) TABLET (FP) PO SCH (09:50)
[2019-11-17] MEDS: CARVEDILOL 25 MG TABLET (FP) PO SCH (09:50)
[2019-11-17] MEDS: CHOLECALCIFEROL (VIT D3) 1,000 UNIT (25 MCG) TABLET PO SCH (09:51)
[2019-11-17] MEDS: SENNOSIDES/DOCUSATE COMBO (SENNA PLUS) TABLET (UD) PO SCH (09:51)
[2019-11-17] MEDS: CEPHALEXIN MONOHYDRATE 500 MG CAPSULE (UD) PO SCH (09:51)
--- NOTE | 2019-11-17 11:25 | DS ---
Physical Examination Vital Signs: Vital Signs Temperature 98.1 F 11/17/19 05:26 Pulse Rate 82 11/17/19 05:26 Respiratory Rate 18 11/17/19 05:26 Blood Pressure 129/63 11/17/19 05:26 O2 Sat by Pulse Oximetry (%) 98 11/17/19 05:26 Findings/Remarks: This is a 69 y/o female with a PMHx significant for HTN, HLD, CAD, Osetoarthritis Right Knee. s/p Right Total Knee Replacement with Dr. Theodore lewis on 11/12/19. Pt was found to have DEB with hypokalemia and elevated Cr. Pt was evaluated by nephrology. Pt's Olmasartan was held, was given IVF which normalized her potassium and Cr. Pt ideally needs to be on ACEI due to HF with reduced EF at 40%. Pt has been started on low dose ACEI losartain 50 mg po daily. It important that pt has CBC/CMP evaluated in 3-5 days. Pt also has GLEN, was given venofer x 1 and injectafer x 1, staredted on Iron polysaccharide 150 mg po daily. Pt also needs follow up on her Hg. Pt was evaluated by GI. Pt refused repeat blood transfusion Constitutional: Yes: Well Nourished, No Distress, Calm Cardiovascular: Yes: Regular Rate and Rhythm Respiratory: Yes: Regular, CTA Bilaterally Gastrointestinal: Yes: Normal Bowel Sounds, Soft Renal/: Yes: WNL Musculoskeletal: Yes: Joint Swelling (right knee), Muscle Weakness Edema: Yes Edema: RLE: 1+ Peripheral Pulses WNL: Yes Integumentary: Yes: Incision (right knee) Wound/Incision: Yes: Dressing Dry and Intact Neurological: Yes: Alert, Oriented Psychiatric: Yes: Alert, Oriented Labs: CBC, BMP 11/17/19 06:50 11/17/19 06:00 Discharge Summary Problems reviewed: Yes Reason For Visit: UNILATERAL PRIMARY OSTEOARTHRITIS, RIGHT KNEE Current Active Problems DEB (acute kidney injury) (Acute) Anemia (Acute) CAD (coronary artery disease) (Acute) Leukocytosis (Acute) S/P knee replacement (Acute) Condition: Stable - Instructions Diet, Activity, Other Instructions: FOLLOW UP WITH NEPHROLOGY DR ORLANDO VELA WITHIN 2 WEEKS DUE TO ACUTE KIDNEY INJURY IN THE HOSPITAL FOLLOW UP WITH CARDIOLOGY DR AUSTIN IBARRA FOR HEART FAILURE WITHIN 4 WEEKS F/U WITH ORTHOPEDIC SURGERY DR THEODORE ZELAYA WITHIN 2 WEEKS REPEAT CBC/CMP IN 3-5 DAYS TO MONITOR K+,Cr AND Hg Post-Operative Instructions Showering and Wound Care: Keep your dressing clean and dry until your follow up appointment. Sponge bathe only. Diet: You may resume your regular diet If you have Diabetes you should keep your glucose well controlled after surgery as having high glucose levels will keep you from healing well and also can increase your risk of infection. Avoid constipation, a common side effect of narcotic pain medication, and stay hydrated. Stool softeners, increased hydration and increasing your fiber intake will help prevent constipation which is a common side effect of narcotic pain medications. Medications: Some of your usual medications may have been changed. Please review the Medication Reconciliation section of this Discharge Plan. You have been prescribed narcotic pain medications, DO NOT drive, drink alcohol or operate heavy machinery while on these medications as they can make you drowsy. Take all narcotic pain medications as prescribed. If your pain is not controlled by the dosage prescribed, please contact your doctors office. You have been prescribed an antiplatelet, EC Aspirin 81mg Twice a day (BID). Take this medication twice everyday, it has been prescribed to prevent blood clots which you are at a higher risk of developing due to your recent surgery. Do not discontinue without speaking to your surgeon. You have been prescribed an antibiotic, Keflex 500mg twice daily. Please take this for a total of 8 days. You should complete this antibiotic on Saturday, 11/20. Activities: Keep legs straight when at rest. If you bend at the knee you will risk contracture (your leg can become stuck in this position). Scar tissue can form in this position and this will making walking difficult and may even require further surgery to correct. Use knee brace, if prescribed. No pillows under knee. Do not sit in a chair with your knee bent. Ambulate, elevate, and ice leg frequently. Follow home exercise program as outlined by your Physical Therapist. Use medical equipment as prescribed. Read your Total Joint Manual. When you are in bed, move your ankles up and down. These are called ankle pumps and will keep blood circulating well throughout your legs in order to prevent blood clot formation. PRECAUTIONS DO NOT twist or pivot your body when you are using a walker. DO NOT climb up on a ladder or stepstool. DO NOT kneel down to black pickler anything. When lying in bed, keep a pillow under your heel or ankle, NOT your knee. It is important to keep your knee straight. Try to stay in positions that do not bend your knee. No Heavy lifting, no exercise until cleared by your surgeon (walking at a regular pace is okay!). Call your Surgeon immediately or report to the Emergency Room if you experience: Blood is soaking through your dressing and the bleeding does not stop when you put pressure on the area for 15 minutes [no peeking]. Swelling or pain in your calf muscle Your foot or toes look darker than normal or are cool to touch Yellowish or green discharge from your incision A temperature higher than 101F Redness around your incision Chest pain Difficulty breathing Follow Up: Call the office to schedule a follow up appointment in 2 weeks. Referrals: Cipriano Ibarra MD [Staff Physician] - Theodore Zelaya MD [Staff Physician] - Orlando Vela MD [Staff Physician] - [facility]position[facility] - Home Medications Comprehensive Discharge Medication List: Ambulatory Orders Amlodipine Bes/Olmesartan Med [Dustin 10-40 mg Tablet] 1 each PO DAILY 01/18/17 Aspirin Coated [Ecotrin -] 81 mg PO DAILY 01/18/17 Carvedilol Phosphate [Coreg Cr -] 80 mg PO DAILY 01/18/17 Hydrochlorothiazide [Hctz -] 12.5 mg PO DAILY 01/18/17 Pantoprazole Sodium [Protonix -] 40 mg PO DAILY #30 tablet.ec 04/08/18 Rosuvastatin [Crestor -] 20 mg PO HS #30 tablet 04/08/18 Ascorbate Calcium [Vitamin C] 500 mg PO DAILY 11/11/19 Baclofen 10 mg PO HS PRN 11/11/19 Cholecalciferol (Vitamin D3) [Vitamin D3] 2,000 unit PO DAILY 11/11/19
[2019-11-17] MEDS ORDERED: ASPIRIN 81 MG CHEWABLE TABLETS PO SCH (11:30)
[2019-11-17] MEDS ORDERED: LOSARTAN POTASSIUM 50 MG TABLET (FP) PO SCH (11:45)
[2019-11-17] MEDS ORDERED: FERRIC CARBOXYMALTOSE 750 MG in SODIUM CHLORIDE 250 ML IVPB ONE (11:45)
--- NOTE | 2019-11-17 12:01 | PN ---
Progress Note, Physician History of Present Illness: Seen and examined at the bedside awake and alert offers no acute complaints no sob, cp, fever or chills making urine tolerating diet . - Current Medication List Current Medications: Active Medications Acetaminophen (Tylenol -) 650 mg PO Q6H PRN PRN Reason: PAIN LEVEL 1-5 Last Admin: 11/16/19 16:35 Dose: 650 mg Documented by: Acetaminophen (Tylenol -) 325 mg PO Q4H PRN PRN Reason: PAIN LEVEL 6-10 Stop: 11/19/19 18:44 Last Admin: 11/17/19 06:59 Dose: 325 mg Documented by: Al Hydroxide/Mg Hydroxide (Mylanta Oral Suspension -) 30 ml PO Q4H PRN PRN Reason: DYSPEPSIA Last Admin: 11/14/19 17:10 Dose: 30 ml Documented by: Ascorbic Acid (Vitamin C -) 500 mg PO DAILY [facility] Last Admin: 11/17/19 09:50 Dose: 500 mg Documented by: Aspirin (Asa -) 81 mg PO BID [facility] Baclofen (Lioresal -) 10 mg PO HS PRN PRN Reason: CRAMPS Carvedilol (Coreg -) 25 mg PO BID [facility] Last Admin: 11/17/19 09:50 Dose: 25 mg Documented by: Cephalexin HCl (Keflex -) 500 mg PO BID [facility] Last Admin: 11/17/19 09:51 Dose: 500 mg Documented by: Cholecalciferol (Vitamin D3 -) 2,000 unit PO DAILY [facility] Last Admin: 11/17/19 09:51 Dose: 2,000 unit Documented by: Potassium Chloride 10 meq/ (Sodium Chloride) 1,005 mls @ 83 mls/hr IVPB Q12H [facility] Last Admin: 11/17/19 02:15 Dose: 83 mls/hr Documented by: Ferric Carboxymaltose 750 mg/ (Sodium Chloride) 265 mls @ 530 mls/hr IVPB ONCE ONE Stop: 11/17/19 12:14 Losartan Potassium (Cozaar -) 50 mg PO DAILY [facility] Magnesium Hydroxide (Milk Of Magnesia -) 30 ml PO PRN PRN PRN Reason: CONSTIPATION Multivitamins/Minerals/Vitamin C (Tab-A-Vit -) 1 tab PO DAILY [facility] Last Admin: 11/17/19 09:50 Dose: 1 tab Documented by: Ondansetron HCl (Zofran Injection) 4 mg IVPUSH Q6H PRN PRN Reason: NAUSEA Last Admin: 11/14/19 09:29 Dose: 4 mg Documented by: Oxycodone HCl (Roxicodone -) 5 mg PO Q4H PRN PRN Reason: PAIN LEVEL 6-10 Last Admin: 11/17/19 06:59 Dose: 5 mg Documented by: Pantoprazole Sodium (Protonix -) 40 mg PO BID [facility] Last Admin: 11/17/19 09:50 Dose: 40 mg Documented by: Polysaccharide Iron Complex (Niferex-150 -) 150 mg PO DAILY [facility] Rosuvastatin Calcium (Crestor -) 20 mg PO HS [facility] Last Admin: 11/16/19 21:11 Dose: 20 mg Documented by: Senna/Docusate Sodium (Pericolace -) 2 tablet PO BID [facility] Last Admin: 11/17/19 09:51 Dose: 2 tablet Documented by: - Objective Vital Signs: Vital Signs Temperature 98.1 F 11/17/19 05:26 Pulse Rate 82 11/17/19 05:26 Respiratory Rate 18 11/17/19 05:26 Blood Pressure 129/63 11/17/19 05:26 O2 Sat by Pulse Oximetry (%) 98 11/17/19 05:26 Constitutional: Yes: No Distress, Calm HENT: Yes: Atraumatic Neck: Yes: Supple Cardiovascular: Yes: Regular Rate and Rhythm Respiratory: Yes: Regular Gastrointestinal: Yes: Soft Extremities: No: Cyanosis Edema: Yes Edema: LLE: Trace, RLE: Trace Labs: CBC, BMP 11/17/19 06:50 11/17/19 06:00 Assessment/Plan 69 year old woman with history of hypertension, hyperlipidemia, CAD and osteoarthritis now s/p Right knee replacement and found to have acute kidney injury with BUN/Cr of 38/2.5. 1. Acute kidney injury likely due to normotensive ATN (NSAID + ARB and diuretics) vs. AIN 2. Osteoarthritis s/p knee replacement 3. Hyponatremia 4. Anemia Renal function improved. Renal US showed no pathology. Urine studies consistent with pre-renal injury. Eosinophils pending. Can d/c IVF Continue to hold diuretics/ARB and NSAIDs. Can restart ARB/Diuretics as an outpatient but will need repeat BMP to monitor renal function in 5-7 days. Oral intake as tolerated There is no acute indication for renal replacement therapy Trend Renal function and electrolytes daily Discharge planning as per primary team Thank you Orlando Garcia DO
--- NOTE | 2019-11-17 14:47 | PN.GI ---
GI Progress Note Subjective: Pt seen and examined at bedside. Pt denies abdominal pain, diarhea, constipation, rectal bleeding, melena. This is a 69 y/o female with a PMHx significant for anemia of childhood, HTN, HLD, CAD, Osetoarthritis Right Knee. s/p Right Total Knee Replacement. Hgb/Hct trending down 7.5/21.9. Pt refusing Blood transfusion. Last EGD done 10/24/2018 . Last colonoscopy done 02/23/2019 with hyperplastic polyp x 2 and L colon diverticulosis. - Objective Vital Signs: Vital Signs Temperature 98.3 F 11/17/19 10:15 Pulse Rate 77 11/17/19 10:15 Respiratory Rate 18 11/17/19 10:15 Blood Pressure 135/65 11/17/19 10:15 O2 Sat by Pulse Oximetry (%) 98 11/17/19 10:15 Constitutional: Well Nourished, No Distress, Calm Eyes: Yes: Conjunctiva Clear HENT: Yes: WNL, Atraumatic Neck: Yes: WNL, Supple, Trachea Midline Cardiovascular: Yes: WNL, Regular Rate and Rhythm Respiratory: Yes: WNL, Regular, CTA Bilaterally Gastrointestinal Inspection: Yes: WNL. No: Distention ...Auscultate: Yes: Normoactive Bowel Sounds ...Palpate: Yes: Soft. No: Firm/Rigid, Guarding, Hepatomegaly, Mass, Pulsatile Mass, Splenomegaly, Tenderness Labs: CBC, BMP 11/17/19 06:50 11/17/19 06:00 Problem List - Problems (1) Anemia Assessment/Plan: Plan discussed with Dr Collado Ferrous sulfate 325mg TID Anemia work up- B12, folic acid,haptoglobin, antigliadin igg,iga, transglutaminase igg,iga,reticulocyte count, HGB electropharesis. iron 12- low, TIBC -188Low, iron saturation 176 Low, ferritin - 446.4 High Get hematology consult Plan for GI work up as an Outpatient Maintain on PPI stool occult blood test Code(s): D64.9 - ANEMIA, UNSPECIFIED
[2019-11-17 14:53] VITALS: BP 159/70; PULSE 82; TEMP 98.2
[2019-11-17] MEDS ORDERED: THROMBIN (BOVINE) 5,000 UNIT VIAL TP ONE (14:59)
[2019-11-18] MEDS ORDERED: IRON POLYSACCHARIDES 150 MG CAPSULE PO SCH (10:00)
== END 2019-11-17 17:40 | DRG 469 ==
LOC: J2C 05:03 → J6S 19:43
PROVIDERS: ADMIT Family Medicine; ATTEND Family Medicine
PROC: 0SRC0JZ Replacement of Right Knee Joint with Synthetic Substitute, Open Approach (ICD-10-PCS; principal; 2019-11-12 11:07)
DX: M17.11 Unilateral primary osteoarthritis, right knee (principal); N17.0 Acute kidney failure with tubular necrosis; E87.1 Hypo-osmolality and hyponatremia; E78.5 Hyperlipidemia, unspecified; I25.10 Atherosclerotic heart disease of native coronary artery without angina pectoris; D72.829 Elevated white blood cell count, unspecified; N99.0 Postprocedural (acute) (chronic) kidney failure; E87.6 Hypokalemia; I11.0 Hypertensive heart disease with heart failure; I50.9 Heart failure, unspecified; D50.9 Iron deficiency anemia, unspecified; T39.315A Adverse effect of propionic acid derivatives, initial encounter; T50.2X5A Adverse effect of carbonic-anhydrase inhibitors, benzothiadiazides and other diuretics, initial encounter; T46.5X5A Adverse effect of other antihypertensive drugs, initial encounter
CPT/HCPCS: 36415; 71045-TC-FY; 73560-TC-RT-FY; 76775-TC; 80048; 80053; 81003; 82550; 82553; 82565; 82607; 82728; 82962; 83540; 83550; 83735; 84100; 84156; 84300; 84439; 84443; 84540; 85025; 86850; 86900; 86901; 86922; 87205; 88305-TC; 88311-TC; 94760; 97116-GP; 97162-GP; J1439; J1756; U0003

== ENCOUNTER 2020-03-17 05:57 | Inpatient (IN) | payer OTHER, BC ==
[2020-03-17 06:58] LABS: BASO % 0.8 % (0-2.0); EOS % 0.7 % (0-4.5); HEMATOCRIT 26.1 % (32.4-45.2); LYMPH % 9.2 % (8-40); MCH 32.9 pg (25.7-33.7); MCHC 34.5 g/dl (32.0-36.0); MEAN CELL VOLUME 95.2 fl (80-96); MEAN PLT VOLUME 7.2 fl (7.5-11.1); MONO % 8.3 % (3.8-10.2); PLATELET COUNT 464 K/MM3 (134-434); RBC 2.74 M/mm3 (3.60-5.2); RDW 12.5 % (11.6-15.6); WHITE BLOOD COUNT 10.1 K/mm3 (4.0-10.0)
[2020-03-17] MEDS: SODIUM CHLORIDE 1,000 ML IV SCH (06:59)
[2020-03-17] MEDS ORDERED: ASPIRIN 300 MG SUPP.RECT PR ONE (07:01)
[2020-03-17 07:06] LABS: INR 1.12 (0.83-1.09); PROTHROMBIN TIME (PATIENT) 13.7 SEC (9.7-13.0)
[2020-03-17 07:14] LABS: CHLORIDE 102 mmol/L (98-107); POTASSIUM 4.9 mmol/L (3.5-5.1); SODIUM 132 mmol/L (136-145)
[2020-03-17 07:20] LABS: ALBUMIN 2.8 g/dl (3.4-5.0); ANION GAP 4 MMOL/L (8-16); BLOOD UREA NITROGEN 11.3 mg/dL (7-18); CALCIUM 8.1 mg/dL (8.5-10.1); CO2 26 mmol/L (21-32)
[2020-03-17] MEDS ORDERED: ASPIRIN 300 MG SUPP.RECT RC ONE (07:20)
[2020-03-17 07:21] LABS: CHOLESTEROL 104 mg/dL (50-200)
[2020-03-17 07:21] LABS: GLUCOSE,RANDOM 154 mg/dL (74-106)
[2020-03-17 07:22] LABS: TRIGLYCERIDES 90 mg/dL (0-150)
[2020-03-17 07:23] LABS: LDL CHOLESTEROL (ONLY SJRH) 49 mg/dL (5-100)
[2020-03-17 07:23] LABS: SGOT/AST 31 U/L (15-37); SGPT/ALT 35 U/L (13-61)
[2020-03-17 07:24] LABS: CREATININE 0.9 mg/dL (0.55-1.3)
[2020-03-17 07:25] LABS: BILIRUBIN,TOTAL 0.4 mg/dL (0.2-1); TOT PROT 7.2 g/dl (6.4-8.2)
[2020-03-17 07:25] LABS: HDL CHOLESTEROL 42 mg/dL (40-60)
[2020-03-17 07:26] LABS: ALK PHOS 90 U/L (45-117)
[2020-03-17 08:44] LABS: URINE APPEARANCE CLEAR; URINE BILIRUBIN NEGATIVE (NEGATIVE); URINE COLOR YELLOW; URINE GLUCOSE (UA) NEGATIVE (NEGATIVE); URINE KETONE NEGATIVE (NEGATIVE); URINE NITRITE NEGATIVE (NEGATIVE); URINE PROTEIN NEGATIVE (NEGATIVE); URINE UROBILINOGEN 0.2 mg/dL (0.2-1.0)
[2020-03-17 08:45] LABS: URINE LEUK ESTERASE NEGATIVE (NEGATIVE)
[2020-03-17] MEDS ORDERED: FAMOTIDINE 20 MG/50 ML IVPB 20 MG/50 ML MG IVPB ONE ×2 (12:01→12:30)
[2020-03-17] MEDS ORDERED: PIPERACILLIN/TAZOB 3.375 GM 3.375 GM in DEXTROSE 5%-WATER - 50 ML IVPB ONE (12:02)
[2020-03-17] MEDS: DEXAMETHASONE SOD PHOSPHATE 4 MG/1 ML VIAL IVPUSH SCH (12:30)
[2020-03-17] MEDS ORDERED: DEXAMETHASONE SOD PHOSPHATE 10 MG/1 ML VIAL ONE (12:30)
[2020-03-17] MEDS ORDERED: PIPERACILLIN/TAZOB 3.375 GM 3.375 GM/50 ML BAG IVPB ONE (12:30)
[2020-03-17] MEDS ORDERED: HEPARIN NA (PORCINE) 5,000 UNITS/ML 1ML VIAL ONE (14:23)
[2020-03-17] MEDS: HEPARIN NA (PORCINE) 5,000 UNITS/ML 1ML VIAL SQ SCH ×2 (14:25→23:26)
[2020-03-17 14:54] LABS: LDH 344 U/L (84-246)
[2020-03-17] MEDS ORDERED: PIPERACILLIN/TAZOBACTAM 3.375 GM VIAL IVPB ONE (17:24)
[2020-03-17] MEDS ORDERED: DEXTROSE 5%-WATER - 50 ML IVPB ONE (17:25)
[2020-03-17] MEDS: PIPERACILLIN/TAZOB 3.375 GM 3.375 GM in DEXTROSE 5%-WATER - 50 ML IVPB SCH (17:39)
[2020-03-17] MEDS ORDERED: PNEUMOC 13-VAL CONJ-DIP CRM/PF 0.5 ML DISP.SYRIN IM ONE (22:00)
[2020-03-17] MEDS ORDERED: FLU VACCINE (FLULAVAL) PF 60 MCG/0.5 ML SYRINGE 2020-2021 IM ONE (22:15)
[2020-03-18] MEDS ORDERED: DEXTROSE 5%-WATER - 50 ML IVPB ONE ×3 (01:57→16:26)
[2020-03-18] MEDS ORDERED: PIPERACILLIN/TAZOBACTAM 3.375 GM VIAL IVPB ONE ×3 (01:57→16:25)
[2020-03-18] MEDS: PIPERACILLIN/TAZOB 3.375 GM 3.375 GM in DEXTROSE 5%-WATER - 50 ML IVPB SCH ×3 (02:08→17:16)
[2020-03-18] MEDS: SODIUM CHLORIDE 1,000 ML IV SCH ×2 (02:09→05:55)
[2020-03-18] MEDS: HEPARIN NA (PORCINE) 5,000 UNITS/ML 1ML VIAL SQ SCH ×2 (05:54→13:03)
[2020-03-18 07:45] LABS: BASO % 1.3 % (0-2.0); HEMATOCRIT 24.6 % (32.4-45.2); HEMOGLOBIN 8.3 GM/dL (10.7-15.3); LYMPH % 11.4 % (8-40); MCH 32.6 pg (25.7-33.7); MCHC 33.9 g/dl (32.0-36.0); MEAN CELL VOLUME 96.1 fl (80-96); MEAN PLT VOLUME 7.4 fl (7.5-11.1); MONO % 5.3 % (3.8-10.2); PLATELET COUNT 474 K/MM3 (134-434); RBC 2.56 M/mm3 (3.60-5.2); RDW 12.8 % (11.6-15.6); WHITE BLOOD COUNT 7.7 K/mm3 (4.0-10.0)
[2020-03-18 08:02] LABS: POTASSIUM 4.8 mmol/L (3.5-5.1)
[2020-03-18 08:08] LABS: ALBUMIN 2.8 g/dl (3.4-5.0); CALCIUM 8.5 mg/dL (8.5-10.1)
[2020-03-18 08:09] LABS: BLOOD UREA NITROGEN 13.4 mg/dL (7-18); MAGNESIUM 2.1 mg/dL (1.8-2.4)
[2020-03-18 08:12] LABS: BILIRUBIN,TOTAL 0.6 mg/dL (0.2-1); PHOSPHOROUS 5.7 mg/dL (2.5-4.9); TOT PROT 7.3 g/dl (6.4-8.2)
[2020-03-18] MEDS ORDERED: PT OWN MED DRAWER 7, Y5N ONE (09:25)
[2020-03-18] MEDS: DEXAMETHASONE SOD PHOSPHATE 4 MG/1 ML VIAL IVPUSH SCH (09:33)
[2020-03-18] MEDS ORDERED: FLU VACCINE (FLULAVAL) PF 60 MCG/0.5 ML SYRINGE 2020-2021 IM ONE (12:00)
[2020-03-18] MEDS ORDERED: REMDESIVIR 200 MG in SODIUM CHLORIDE 210 ML IVPB ONE (15:00)
[2020-03-18] MEDS: APIXABAN 5 MG TABLET PO SCH (21:57)
[2020-03-18] MEDS: ATORVASTATIN CA 40 MG TABLET (FP) PO SCH (21:57)
[2020-03-18] MEDS ORDERED: ENOXAPARIN NA (PORCINE) 100 MG/1 ML DISP.SYRIN SQ SCH (22:00)
[2020-03-19] MEDS ORDERED: DEXTROSE 5%-WATER - 50 ML IVPB ONE ×3 (01:11→17:04)
[2020-03-19] MEDS ORDERED: PIPERACILLIN/TAZOBACTAM 3.375 GM VIAL IVPB ONE ×3 (01:11→17:04)
[2020-03-19] MEDS: PIPERACILLIN/TAZOB 3.375 GM 3.375 GM in DEXTROSE 5%-WATER - 50 ML IVPB SCH ×3 (01:42→17:15)
[2020-03-19] MEDS: SODIUM CHLORIDE 1,000 ML IV SCH ×2 (01:42→09:07)
[2020-03-19 07:48] LABS: POTASSIUM 4.6 mmol/L (3.5-5.1)
[2020-03-19 07:51] LABS: HEMATOCRIT 24.8 % (32.4-45.2); HEMOGLOBIN 8.4 GM/dL (10.7-15.3); LYMPH % 14.1 % (8-40); MCH 32.5 pg (25.7-33.7); MCHC 33.8 g/dl (32.0-36.0); MEAN PLT VOLUME 7.1 fl (7.5-11.1); NEUT % 76.9 % (42.8-82.8); PLATELET COUNT 523 K/MM3 (134-434); RBC 2.58 M/mm3 (3.60-5.2); RDW 12.6 % (11.6-15.6); WHITE BLOOD COUNT 9.6 K/mm3 (4.0-10.0)
[2020-03-19 08:14] LABS: ALBUMIN 2.8 g/dl (3.4-5.0); BLOOD UREA NITROGEN 19.4 mg/dL (7-18)
[2020-03-19 08:15] LABS: CALCIUM 8.8 mg/dL (8.5-10.1); MAGNESIUM 2.1 mg/dL (1.8-2.4)
[2020-03-19 08:17] LABS: CREATININE 0.9 mg/dL (0.55-1.3)
[2020-03-19 08:18] LABS: BILIRUBIN,TOTAL 0.5 mg/dL (0.2-1); TOT PROT 6.9 g/dl (6.4-8.2)
[2020-03-19] MEDS: APIXABAN 5 MG TABLET PO SCH ×2 (09:06→21:35)
[2020-03-19] MEDS: DEXAMETHASONE SOD PHOSPHATE 4 MG/1 ML VIAL IVPUSH SCH (09:06)
[2020-03-19] MEDS: REMDESIVIR 100 MG in SODIUM CHLORIDE 230 ML IVPB SCH (15:19)
[2020-03-19] MEDS: ATORVASTATIN CA 40 MG TABLET (FP) PO SCH (21:35)
[2020-03-20] MEDS ORDERED: PIPERACILLIN/TAZOBACTAM 3.375 GM VIAL IVPB ONE ×3 (00:41→17:46)
[2020-03-20] MEDS ORDERED: DEXTROSE 5%-WATER - 50 ML IVPB ONE ×3 (00:42→17:46)
[2020-03-20] MEDS: PIPERACILLIN/TAZOB 3.375 GM 3.375 GM in DEXTROSE 5%-WATER - 50 ML IVPB SCH ×3 (01:21→17:48)
[2020-03-20] MEDS: SODIUM CHLORIDE 1,000 ML IV SCH (06:08)
[2020-03-20 07:06] LABS: BASO % 4.7 % (0-2.0); EOS % 0.1 % (0-4.5); HEMATOCRIT 26.7 % (32.4-45.2); HEMOGLOBIN 9.2 GM/dL (10.7-15.3); LYMPH % 10.4 % (8-40); MCH 32.5 pg (25.7-33.7); MCHC 34.3 g/dl (32.0-36.0); MEAN CELL VOLUME 94.8 fl (80-96); MEAN PLT VOLUME 6.8 fl (7.5-11.1); MONO % 5.3 % (3.8-10.2); NEUT % 79.5 % (42.8-82.8); PLATELET COUNT 512 K/MM3 (134-434); RBC 2.82 M/mm3 (3.60-5.2); RDW 12.7 % (11.6-15.6); WHITE BLOOD COUNT 9.3 K/mm3 (4.0-10.0)
[2020-03-20 07:26] LABS: POTASSIUM 4.2 mmol/L (3.5-5.1)
[2020-03-20 07:30] LABS: CALCIUM 8.2 mg/dL (8.5-10.1)
[2020-03-20 07:31] LABS: ALBUMIN 2.9 g/dl (3.4-5.0); BLOOD UREA NITROGEN 16.6 mg/dL (7-18); MAGNESIUM 1.9 mg/dL (1.8-2.4)
[2020-03-20 07:33] LABS: CREATININE 0.9 mg/dL (0.55-1.3)
[2020-03-20 07:35] LABS: BILIRUBIN,TOTAL 0.3 mg/dL (0.2-1)
[2020-03-20] MEDS: APIXABAN 5 MG TABLET PO SCH ×2 (10:05→21:58)
[2020-03-20] MEDS: DEXAMETHASONE SOD PHOSPHATE 4 MG/1 ML VIAL IVPUSH SCH (10:05)
[2020-03-20 10:12] LABS: ANISOCYTOSIS 1+; MACROCYTOSIS 1+; PLATELET ESTIMATE INCREASED
[2020-03-20] MEDS: REMDESIVIR 100 MG in SODIUM CHLORIDE 230 ML IVPB SCH (14:17)
[2020-03-20] MEDS: ATORVASTATIN CA 40 MG TABLET (FP) PO SCH (21:58)
[2020-03-21] MEDS ORDERED: PIPERACILLIN/TAZOBACTAM 3.375 GM VIAL IVPB ONE ×3 (01:09→16:26)
[2020-03-21] MEDS ORDERED: DEXTROSE 5%-WATER - 50 ML IVPB ONE ×3 (01:10→16:26)
[2020-03-21] MEDS: PIPERACILLIN/TAZOB 3.375 GM 3.375 GM in DEXTROSE 5%-WATER - 50 ML IVPB SCH ×3 (01:11→17:09)
[2020-03-21] MEDS: SODIUM CHLORIDE 1,000 ML IV SCH (07:30)
[2020-03-21 08:30] LABS: EOS % 0.1 % (0-4.5); HEMATOCRIT 26.8 % (32.4-45.2); HEMOGLOBIN 9.2 GM/dL (10.7-15.3); LYMPH % 15.7 % (8-40); MCH 32.8 pg (25.7-33.7); MCHC 34.2 g/dl (32.0-36.0); MEAN PLT VOLUME 6.7 fl (7.5-11.1); MONO % 8.9 % (3.8-10.2); NEUT % 74.3 % (42.8-82.8); PLATELET COUNT 472 K/MM3 (134-434); WHITE BLOOD COUNT 8.7 K/mm3 (4.0-10.0)
[2020-03-21 09:03] LABS: POTASSIUM 4.4 mmol/L (3.5-5.1)
[2020-03-21 09:12] LABS: BILIRUBIN,TOTAL 0.3 mg/dL (0.2-1)
[2020-03-21 09:13] LABS: ALBUMIN 2.8 g/dl (3.4-5.0); BLOOD UREA NITROGEN 15.1 mg/dL (7-18)
[2020-03-21 09:15] LABS: CREATININE 0.9 mg/dL (0.55-1.3); TOT PROT 6.8 g/dl (6.4-8.2)
[2020-03-21 09:16] LABS: CALCIUM 8.5 mg/dL (8.5-10.1)
[2020-03-21] MEDS ORDERED: PT OWN MED DRAWER 7, Y5N ONE ×2 (09:24→14:23)
[2020-03-21] MEDS: APIXABAN 5 MG TABLET PO SCH ×2 (09:38→21:19)
[2020-03-21] MEDS: ZINC SULFATE 220 MG CAPSULE (FP) PO SCH (09:38)
[2020-03-21] MEDS: CHOLECALCIFEROL (VIT D3) 400 UNIT (10 MCG) TABLET PO SCH (09:38)
[2020-03-21] MEDS: ASCORBIC ACID 250 MG TABLET (FP) PO SCH (09:38)
[2020-03-21] MEDS: DEXAMETHASONE SOD PHOSPHATE 4 MG/1 ML VIAL IVPUSH SCH (09:39)
[2020-03-21] MEDS: ASPIRIN COATED 81 MG TABLET.EC PO SCH (14:20)
[2020-03-21] MEDS: REMDESIVIR 100 MG in SODIUM CHLORIDE 230 ML IVPB SCH (15:08)
[2020-03-21] MEDS: ATORVASTATIN CA 40 MG TABLET (FP) PO SCH (21:17)
[2020-03-21] MEDS: CARVEDILOL 25 MG TABLET (FP) PO SCH (21:17)
[2020-03-22] MEDS ORDERED: DEXTROSE 5%-WATER - 50 ML IVPB ONE ×3 (00:56→16:22)
[2020-03-22] MEDS ORDERED: PIPERACILLIN/TAZOBACTAM 3.375 GM VIAL IVPB ONE ×3 (00:56→16:22)
[2020-03-22] MEDS: PIPERACILLIN/TAZOB 3.375 GM 3.375 GM in DEXTROSE 5%-WATER - 50 ML IVPB SCH ×3 (01:09→17:32)
[2020-03-22 07:10] LABS: BASO % 0.7 % (0-2.0); EOS % 0.1 % (0-4.5); HEMATOCRIT 27.1 % (32.4-45.2); HEMOGLOBIN 9.4 GM/dL (10.7-15.3); LYMPH % 15.9 % (8-40); MCH 33.4 pg (25.7-33.7); MCHC 34.6 g/dl (32.0-36.0); MEAN CELL VOLUME 96.6 fl (80-96); MEAN PLT VOLUME 6.9 fl (7.5-11.1); MONO % 7.4 % (3.8-10.2); NEUT % 75.9 % (42.8-82.8); PLATELET COUNT 481 K/MM3 (134-434); RDW 12.8 % (11.6-15.6); WHITE BLOOD COUNT 9.1 K/mm3 (4.0-10.0)
[2020-03-22 07:33] LABS: POTASSIUM 4.2 mmol/L (3.5-5.1)
[2020-03-22 07:44] LABS: ALBUMIN 2.8 g/dl (3.4-5.0); BLOOD UREA NITROGEN 15.2 mg/dL (7-18); CALCIUM 8.3 mg/dL (8.5-10.1)
[2020-03-22 07:47] LABS: CREATININE 0.9 mg/dL (0.55-1.3)
[2020-03-22 07:48] LABS: BILIRUBIN,TOTAL 0.3 mg/dL (0.2-1)
[2020-03-22 07:49] LABS: TOT PROT 6.8 g/dl (6.4-8.2)
[2020-03-22] MEDS ORDERED: PATIENT'S OWN MEDICATION (NON-FORMULARY) (Amlodipine Bes/Olmesartan Med [Azor 10-40 Mg Tab PO SCH (10:00)
[2020-03-22] MEDS: SODIUM CHLORIDE 1,000 ML IV SCH (10:04)
[2020-03-22] MEDS: APIXABAN 5 MG TABLET PO SCH ×2 (10:05→22:03)
[2020-03-22] MEDS: ASPIRIN COATED 81 MG TABLET.EC PO SCH (10:05)
[2020-03-22] MEDS: CARVEDILOL 25 MG TABLET (FP) PO SCH ×2 (10:05→22:04)
[2020-03-22] MEDS: HYDROCHLOROTHIAZIDE 25 MG TABLET (FP) PO SCH (10:05)
[2020-03-22] MEDS: DEXAMETHASONE SOD PHOSPHATE 4 MG/1 ML VIAL IVPUSH SCH (10:05)
[2020-03-22] MEDS: ASCORBIC ACID 250 MG TABLET (FP) PO SCH (10:05)
[2020-03-22] MEDS: ZINC SULFATE 220 MG CAPSULE (FP) PO SCH (10:05)
[2020-03-22] MEDS: amLODIPine BESYLATE 10 MG TABLET (FP) PO SCH (10:05)
[2020-03-22] MEDS: VALSARTAN 160 MG TABLET PO SCH (10:06)
[2020-03-22] MEDS: CHOLECALCIFEROL (VIT D3) 400 UNIT (10 MCG) TABLET PO SCH (12:42)
[2020-03-22] MEDS ORDERED: PT OWN MED DRAWER 7, Y5N ONE (15:49)
[2020-03-22] MEDS: REMDESIVIR 100 MG in SODIUM CHLORIDE 230 ML IVPB SCH (15:51)
[2020-03-22] MEDS: NYSTATIN 500,000 UNITS/5 ML SUSPENSION PO SCH (17:32)
[2020-03-22] MEDS: ATORVASTATIN CA 40 MG TABLET (FP) PO SCH (22:04)
[2020-03-23] MEDS: NYSTATIN 500,000 UNITS/5 ML SUSPENSION PO SCH ×4 (00:30→19:43)
[2020-03-23] MEDS ORDERED: DEXTROSE 5%-WATER - 50 ML IVPB ONE ×3 (01:33→17:02)
[2020-03-23] MEDS ORDERED: PIPERACILLIN/TAZOBACTAM 3.375 GM VIAL IVPB ONE ×3 (01:33→17:02)
[2020-03-23] MEDS: PIPERACILLIN/TAZOB 3.375 GM 3.375 GM in DEXTROSE 5%-WATER - 50 ML IVPB SCH ×3 (01:35→19:43)
[2020-03-23 07:39] LABS: BASO % 1.4 % (0-2.0); EOS % 0.1 % (0-4.5); HEMATOCRIT 27.1 % (32.4-45.2); HEMOGLOBIN 9.6 GM/dL (10.7-15.3); MCH 33.6 pg (25.7-33.7); MCHC 35.3 g/dl (32.0-36.0); MEAN CELL VOLUME 95.2 fl (80-96); MEAN PLT VOLUME 6.8 fl (7.5-11.1); MONO % 7.1 % (3.8-10.2); NEUT % 77.4 % (42.8-82.8); PLATELET COUNT 459 K/MM3 (134-434); RBC 2.85 M/mm3 (3.60-5.2); RDW 13.3 % (11.6-15.6); WHITE BLOOD COUNT 10.1 K/mm3 (4.0-10.0)
[2020-03-23 08:23] LABS: POTASSIUM 4.1 mmol/L (3.5-5.1)
[2020-03-23 08:26] LABS: ALBUMIN 2.8 g/dl (3.4-5.0); CALCIUM 8.5 mg/dL (8.5-10.1)
[2020-03-23 08:27] LABS: BLOOD UREA NITROGEN 15.1 mg/dL (7-18)
[2020-03-23 08:29] LABS: CREATININE 0.8 mg/dL (0.55-1.3)
[2020-03-23 08:31] LABS: BILIRUBIN,TOTAL 0.6 mg/dL (0.2-1); TOT PROT 6.6 g/dl (6.4-8.2)
[2020-03-23] MEDS: APIXABAN 5 MG TABLET PO SCH ×2 (09:24→21:05)
[2020-03-23] MEDS: CARVEDILOL 25 MG TABLET (FP) PO SCH ×2 (09:24→21:05)
[2020-03-23] MEDS: amLODIPine BESYLATE 10 MG TABLET (FP) PO SCH (09:24)
[2020-03-23] MEDS: ZINC SULFATE 220 MG CAPSULE (FP) PO SCH (09:24)
[2020-03-23] MEDS: HYDROCHLOROTHIAZIDE 25 MG TABLET (FP) PO SCH (09:25)
[2020-03-23] MEDS: CHOLECALCIFEROL (VIT D3) 400 UNIT (10 MCG) TABLET PO SCH (09:25)
[2020-03-23] MEDS: ASPIRIN COATED 81 MG TABLET.EC PO SCH (09:25)
[2020-03-23] MEDS: VALSARTAN 160 MG TABLET PO SCH (09:25)
[2020-03-23] MEDS: DEXAMETHASONE SOD PHOSPHATE 4 MG/1 ML VIAL IVPUSH SCH (09:25)
[2020-03-23] MEDS: SODIUM CHLORIDE 1,000 ML IV SCH (09:49)
[2020-03-23 12:29] VITALS: BMI 33.4
[2020-03-23] MEDS: ASCORBIC ACID 250 MG TABLET (FP) PO SCH (12:30)
[2020-03-23] MEDS: ATORVASTATIN CA 40 MG TABLET (FP) PO SCH (21:05)
[2020-03-24] MEDS: NYSTATIN 500,000 UNITS/5 ML SUSPENSION PO SCH ×5 (00:01→23:43)
[2020-03-24] MEDS ORDERED: PIPERACILLIN/TAZOBACTAM 3.375 GM VIAL IVPB ONE ×2 (01:20→10:08)
[2020-03-24] MEDS ORDERED: DEXTROSE 5%-WATER - 50 ML IVPB ONE ×2 (01:21→10:08)
[2020-03-24] MEDS: PIPERACILLIN/TAZOB 3.375 GM 3.375 GM in DEXTROSE 5%-WATER - 50 ML IVPB SCH ×2 (02:32→10:44)
[2020-03-24] MEDS: SODIUM CHLORIDE 1,000 ML IV SCH (05:50)
[2020-03-24 07:29] LABS: BASO % 0.6 % (0-2.0); HEMATOCRIT 29.5 % (32.4-45.2); HEMOGLOBIN 10.1 GM/dL (10.7-15.3); LYMPH % 12.2 % (8-40); MCH 32.7 pg (25.7-33.7); MCHC 34.2 g/dl (32.0-36.0); MEAN CELL VOLUME 95.7 fl (80-96); MEAN PLT VOLUME 7.1 fl (7.5-11.1); MONO % 5.5 % (3.8-10.2); NEUT % 81.7 % (42.8-82.8); PLATELET COUNT 449 K/MM3 (134-434); RBC 3.08 M/mm3 (3.60-5.2); RDW 13.2 % (11.6-15.6); WHITE BLOOD COUNT 11.4 K/mm3 (4.0-10.0)
[2020-03-24 07:35] LABS: CHLORIDE 103 mmol/L (98-107); POTASSIUM 4.4 mmol/L (3.5-5.1); SODIUM 138 mmol/L (136-145)
[2020-03-24 07:43] LABS: ANION GAP 7 MMOL/L (8-16); CALCIUM 8.6 mg/dL (8.5-10.1); CO2 28 mmol/L (21-32); SGOT/AST 15 U/L (15-37); SGPT/ALT 56 U/L (13-61)
[2020-03-24 07:44] LABS: GLUCOSE,RANDOM 156 mg/dL (74-106); MAGNESIUM 1.9 mg/dL (1.8-2.4)
[2020-03-24 07:45] LABS: BILIRUBIN,TOTAL 0.4 mg/dL (0.2-1); TOT PROT 6.9 g/dl (6.4-8.2)
[2020-03-24 07:46] LABS: ALK PHOS 68 U/L (45-117)
[2020-03-24] MEDS ORDERED: PT OWN MED DRAWER 7, Y5N ONE ×2 (10:07→11:26)
[2020-03-24] MEDS: APIXABAN 5 MG TABLET PO SCH ×2 (10:42→21:34)
[2020-03-24] MEDS: amLODIPine BESYLATE 10 MG TABLET (FP) PO SCH (10:42)
[2020-03-24] MEDS: ZINC SULFATE 220 MG CAPSULE (FP) PO SCH (10:42)
[2020-03-24] MEDS: HYDROCHLOROTHIAZIDE 25 MG TABLET (FP) PO SCH (10:43)
[2020-03-24] MEDS: VALSARTAN 160 MG TABLET PO SCH (10:43)
[2020-03-24] MEDS: ASPIRIN COATED 81 MG TABLET.EC PO SCH (10:43)
[2020-03-24] MEDS: DEXAMETHASONE SOD PHOSPHATE 4 MG/1 ML VIAL IVPUSH SCH (10:43)
[2020-03-24] MEDS: CARVEDILOL 25 MG TABLET (FP) PO SCH ×2 (10:43→21:34)
[2020-03-24] MEDS: ASCORBIC ACID 250 MG TABLET (FP) PO SCH (10:44)
[2020-03-24] MEDS: CHOLECALCIFEROL (VIT D3) 400 UNIT (10 MCG) TABLET PO SCH (11:59)
[2020-03-24] MEDS: ATORVASTATIN CA 40 MG TABLET (FP) PO SCH (21:34)
[2020-03-25] MEDS: NYSTATIN 500,000 UNITS/5 ML SUSPENSION PO SCH ×3 (05:28→17:37)
[2020-03-25 07:28] LABS: BASO % 0.4 % (0-2.0); HEMATOCRIT 29.6 % (32.4-45.2); HEMOGLOBIN 10.1 GM/dL (10.7-15.3); LYMPH % 11.3 % (8-40); MCH 32.9 pg (25.7-33.7); MCHC 34.2 g/dl (32.0-36.0); MEAN CELL VOLUME 96.1 fl (80-96); MEAN PLT VOLUME 7.4 fl (7.5-11.1); MONO % 5.3 % (3.8-10.2); PLATELET COUNT 425 K/MM3 (134-434); RBC 3.09 M/mm3 (3.60-5.2); RDW 13.5 % (11.6-15.6); WHITE BLOOD COUNT 11.4 K/mm3 (4.0-10.0)
[2020-03-25 07:37] LABS: CHLORIDE 102 mmol/L (98-107); POTASSIUM 4.2 mmol/L (3.5-5.1); SODIUM 137 mmol/L (136-145)
[2020-03-25 07:50] LABS: CALCIUM 8.9 mg/dL (8.5-10.1)
[2020-03-25 07:51] LABS: ALBUMIN 3.1 g/dl (3.4-5.0); ANION GAP 9 MMOL/L (8-16); CO2 27 mmol/L (21-32)
[2020-03-25 07:54] LABS: BLOOD UREA NITROGEN 22.1 mg/dL (7-18); GLUCOSE,RANDOM 190 mg/dL (74-106); MAGNESIUM 1.9 mg/dL (1.8-2.4); SGOT/AST 12 U/L (15-37)
[2020-03-25 07:55] LABS: BILIRUBIN,TOTAL 0.5 mg/dL (0.2-1)
[2020-03-25 07:57] LABS: ALK PHOS 68 U/L (45-117); CREATININE 0.9 mg/dL (0.55-1.3)
[2020-03-25 07:58] LABS: LDH 237 U/L (84-246)
[2020-03-25 07:59] LABS: SGPT/ALT 43 U/L (13-61)
[2020-03-25] MEDS ORDERED: PT OWN MED DRAWER 7, Y5N ONE (09:53)
[2020-03-25] MEDS: VALSARTAN 160 MG TABLET PO SCH (09:56)
[2020-03-25] MEDS: amLODIPine BESYLATE 10 MG TABLET (FP) PO SCH (09:57)
[2020-03-25] MEDS: CARVEDILOL 25 MG TABLET (FP) PO SCH ×2 (09:57→21:50)
[2020-03-25] MEDS: DEXAMETHASONE 4 MG TABLET (FP) PO SCH (09:57)
[2020-03-25] MEDS: ZINC SULFATE 220 MG CAPSULE (FP) PO SCH (09:57)
[2020-03-25] MEDS: ASPIRIN COATED 81 MG TABLET.EC PO SCH (09:57)
[2020-03-25] MEDS: APIXABAN 5 MG TABLET PO SCH ×2 (09:57→21:50)
[2020-03-25] MEDS: CHOLECALCIFEROL (VIT D3) 400 UNIT (10 MCG) TABLET PO SCH (09:57)
[2020-03-25] MEDS: ASCORBIC ACID 250 MG TABLET (FP) PO SCH (09:57)
[2020-03-25] MEDS: HYDROCHLOROTHIAZIDE 25 MG TABLET (FP) PO SCH (09:57)
[2020-03-25] MEDS: ATORVASTATIN CA 40 MG TABLET (FP) PO SCH (21:50)
[2020-03-25] MEDS ORDERED: INSULIN (NOVOLOG) ASPART 100 UNITS/ML 10ML VIAL SQ ONE (22:07)
[2020-03-26] MEDS: NYSTATIN 500,000 UNITS/5 ML SUSPENSION PO SCH ×5 (00:13→23:36)
[2020-03-26 07:41] LABS: BASO % 0.7 % (0-2.0); HEMATOCRIT 30.7 % (32.4-45.2); HEMOGLOBIN 10.6 GM/dL (10.7-15.3); LYMPH % 10.7 % (8-40); MCH 32.9 pg (25.7-33.7); MCHC 34.6 g/dl (32.0-36.0); MEAN CELL VOLUME 95.3 fl (80-96); MEAN PLT VOLUME 7.6 fl (7.5-11.1); MONO % 4.9 % (3.8-10.2); NEUT % 83.7 % (42.8-82.8); PLATELET COUNT 371 K/MM3 (134-434); RBC 3.22 M/mm3 (3.60-5.2); RDW 13.9 % (11.6-15.6); WHITE BLOOD COUNT 11.7 K/mm3 (4.0-10.0)
[2020-03-26 07:58] LABS: CHLORIDE 100 mmol/L (98-107); POTASSIUM 4.7 mmol/L (3.5-5.1); SODIUM 136 mmol/L (136-145)
[2020-03-26 08:05] LABS: ANION GAP 9 MMOL/L (8-16); CO2 26 mmol/L (21-32)
[2020-03-26 08:06] LABS: ALBUMIN 3.2 g/dl (3.4-5.0); BLOOD UREA NITROGEN 30.4 mg/dL (7-18); GLUCOSE,RANDOM 201 mg/dL (74-106); MAGNESIUM 2.1 mg/dL (1.8-2.4)
[2020-03-26 08:07] LABS: SGOT/AST 14 U/L (15-37); SGPT/ALT 44 U/L (13-61)
[2020-03-26 08:09] LABS: BILIRUBIN,TOTAL 0.4 mg/dL (0.2-1); CREATININE 0.9 mg/dL (0.55-1.3); TOT PROT 7.2 g/dl (6.4-8.2)
[2020-03-26 08:10] LABS: ALK PHOS 73 U/L (45-117)
[2020-03-26] MEDS: ZINC SULFATE 220 MG CAPSULE (FP) PO SCH (09:45)
[2020-03-26] MEDS: HYDROCHLOROTHIAZIDE 25 MG TABLET (FP) PO SCH (09:45)
[2020-03-26] MEDS: CARVEDILOL 25 MG TABLET (FP) PO SCH ×2 (09:45→21:50)
[2020-03-26] MEDS: ASCORBIC ACID 250 MG TABLET (FP) PO SCH (09:45)
[2020-03-26] MEDS: APIXABAN 5 MG TABLET PO SCH ×2 (09:45→21:49)
[2020-03-26] MEDS: DEXAMETHASONE 4 MG TABLET (FP) PO SCH (09:45)
[2020-03-26] MEDS: VALSARTAN 160 MG TABLET PO SCH (09:46)
[2020-03-26] MEDS: amLODIPine BESYLATE 10 MG TABLET (FP) PO SCH (09:46)
[2020-03-26] MEDS: ASPIRIN COATED 81 MG TABLET.EC PO SCH (09:46)
[2020-03-26] MEDS: CHOLECALCIFEROL (VIT D3) 400 UNIT (10 MCG) TABLET PO SCH (09:46)
[2020-03-26] MEDS: INSULIN SLIDING SCALE (NOVOLOG) 1 VIAL SQ SCH ×3 (12:24→21:57)
[2020-03-26] MEDS ORDERED: PT OWN MED DRAWER 7, Y5N ONE (21:09)
[2020-03-26] MEDS: ATORVASTATIN CA 40 MG TABLET (FP) PO SCH (21:49)
[2020-03-26] MEDS ORDERED: LATANOPROST 0.005% OPHTH SOLN 2.5ML BOTTLE OU SCH (22:00)
[2020-03-27] MEDS: NYSTATIN 500,000 UNITS/5 ML SUSPENSION PO SCH ×2 (06:41→11:57)
[2020-03-27] MEDS: INSULIN SLIDING SCALE (NOVOLOG) 1 VIAL SQ SCH ×2 (06:42→11:55)
[2020-03-27] MEDS: amLODIPine BESYLATE 10 MG TABLET (FP) PO SCH (10:18)
[2020-03-27] MEDS: CHOLECALCIFEROL (VIT D3) 400 UNIT (10 MCG) TABLET PO SCH (10:18)
[2020-03-27] MEDS: VALSARTAN 160 MG TABLET PO SCH (10:19)
[2020-03-27] MEDS: ASPIRIN COATED 81 MG TABLET.EC PO SCH (10:19)
[2020-03-27] MEDS: HYDROCHLOROTHIAZIDE 25 MG TABLET (FP) PO SCH (10:19)
[2020-03-27] MEDS: APIXABAN 5 MG TABLET PO SCH (10:19)
[2020-03-27] MEDS: ZINC SULFATE 220 MG CAPSULE (FP) PO SCH (10:19)
[2020-03-27] MEDS: DEXAMETHASONE 4 MG TABLET (FP) PO SCH (10:19)
[2020-03-27] MEDS: CARVEDILOL 25 MG TABLET (FP) PO SCH (10:19)
[2020-03-27] MEDS: ASCORBIC ACID 250 MG TABLET (FP) PO SCH (10:19)
[2020-03-27 11:06] VITALS: BP 136/65; PULSE 65; TEMP 98.5
== END 2020-03-27 13:15 | DRG 177 ==
LOC: JER 05:57 → JERBED 10:46 → J4S 16:35
PROVIDERS: ATTEND Nurse Practitioner Acute Care
PROC: XW033E5 Introduction of Remdesivir Anti-infective into Peripheral Vein, Percutaneous Approach, New Technology Group 5 (ICD-10-PCS; principal; 2020-03-17)
DX: U07.1 COVID-19 (principal); I63.9 Cerebral infarction, unspecified; J12.82 Pneumonia due to coronavirus disease 2019; J96.01 Acute respiratory failure with hypoxia; G81.91 Hemiplegia, unspecified affecting right dominant side; R47.01 Aphasia; I50.32 Chronic diastolic (congestive) heart failure; E66.01 Morbid (severe) obesity due to excess calories; E78.5 Hyperlipidemia, unspecified; I25.10 Atherosclerotic heart disease of native coronary artery without angina pectoris; D64.9 Anemia, unspecified; Z68.33 Body mass index [BMI] 33.0-33.9, adult; I11.0 Hypertensive heart disease with heart failure
CPT/HCPCS: 36415; 70450-TC; 70496-TC; 70551-TC; 71045-TC-FY; 74230-TC-FY; 80053; 80061; 81003; 82550; 82728; 82962; 83036; 83615; 83721; 83735; 84100; 84439; 84443; 84484; 85025; 85379; 85610; 85730; 86140; 86850; 86900; 86901; 87086; 87804; 92611-GN; 93005; 93010; 93306-TC; 93880-TC; 97116-GP; 97161-GP; 99285-25; C9399; C9803; G0008; J1644; Q2036; U0003

== ENCOUNTER 2020-08-25 07:05 | Day surgery (SDC) | payer OTHER, BC ==
[2020-08-25] MEDS ORDERED: FERRIC CARBOXYMALTOSE 750 MG in SODIUM CHLORIDE 250 ML IVPB ONE (12:57)
[2020-08-25 14:35] LABS: BASO % 0.4 % (0-2.0); EOS % 0.2 % (0-4.5); HEMATOCRIT 33.4 % (32.4-45.2); HEMOGLOBIN 11.3 GM/dL (10.7-15.3); MCH 31.9 pg (25.7-33.7); MCHC 33.7 g/dl (32.0-36.0); MEAN CELL VOLUME 94.8 fl (80-96); MEAN PLT VOLUME 9.5 fl (7.5-11.1); MONO % 5.3 % (3.8-10.2); NEUT % 67.1 % (42.8-82.8); PLATELET COUNT 201 10^3/uL (134-434); RBC 3.52 M/mm3 (3.60-5.2); RDW 13.4 % (11.6-15.6); WHITE BLOOD COUNT 5.8 K/mm3 (4.0-10.0)
[2020-08-25 14:57] LABS: CALCIUM 9.4 mg/dL (8.5-10.1)
[2020-08-25 14:58] LABS: ALBUMIN 4.6 g/dl (3.4-5.0)
[2020-08-25 15:01] LABS: CREATININE 0.9 mg/dL (0.55-1.3)
[2020-08-25 15:03] LABS: BILIRUBIN,TOTAL 0.5 mg/dL (0.2-1)
[2020-08-25 18:00] VITALS: BP 143/59; PULSE 54; TEMP 97.7
== END 2020-08-25 15:15 | disposition home or self-care (01) ==
LOC: JONCNONCHE 07:05
PROVIDERS: ATTEND Internal Medicine Hematology & Oncology
PROC: 3E033GC Introduction of Other Therapeutic Substance into Peripheral Vein, Percutaneous Approach (ICD-10-PCS; principal; 2020-08-25)
DX: D50.9 Iron deficiency anemia, unspecified (principal)
CPT/HCPCS: 36415; 80053; 85025; 96365; J1439

== ENCOUNTER 2020-09-09 05:13 | Day surgery (SDC) | payer OTHER, BC ==
[2020-09-09] MEDS ORDERED: FERRIC CARBOXYMALTOSE 750 MG in SODIUM CHLORIDE 250 ML IVPB ONE (09:00)
[2020-09-09 12:24] LABS: BASO % 0.3 % (0-2.0); EOS % 0.3 % (0-4.5); HEMATOCRIT 31.5 % (32.4-45.2); HEMOGLOBIN 10.8 GM/dL (10.7-15.3); LYMPH % 24.1 % (8-40); MCH 33.1 pg (25.7-33.7); MCHC 34.2 g/dl (32.0-36.0); MEAN CELL VOLUME 96.8 fl (80-96); MONO % 5.9 % (3.8-10.2); NEUT % 69.4 % (42.8-82.8); PLATELET COUNT 210 10^3/uL (134-434); RBC 3.25 M/mm3 (3.60-5.2); RDW 13.6 % (11.6-15.6)
[2020-09-09 12:42] LABS: CALCIUM 8.7 mg/dL (8.5-10.1)
[2020-09-09 12:43] LABS: BLOOD UREA NITROGEN 16.8 mg/dL (7-18)
[2020-09-09 12:46] LABS: CREATININE 0.9 mg/dL (0.55-1.3)
[2020-09-09 12:47] LABS: BILIRUBIN,TOTAL 0.3 mg/dL (0.2-1); TOT PROT 7.4 g/dl (6.4-8.2)
[2020-09-09 15:37] VITALS: BP 146/51; PULSE 73; TEMP 98.9
== END 2020-09-09 13:20 | disposition home or self-care (01) ==
LOC: JONCNONCHE 05:13
PROVIDERS: ATTEND Internal Medicine Hematology & Oncology
PROC: 3E033GC Introduction of Other Therapeutic Substance into Peripheral Vein, Percutaneous Approach (ICD-10-PCS; principal; 2020-09-09)
DX: D64.9 Anemia, unspecified (principal)
CPT/HCPCS: 36415; 80053; 85025; 96365; J1439

== ENCOUNTER → 2021-01-03 | Day surgery (SDC) | payer OTHER, BC | END | disposition home or self-care (01) | LOC: JRADIR 09:13 | PROVIDERS: ATTEND Internal Medicine Endocrinology, Diabetes & Metabolism | PROC: 0G9K3ZX Drainage of Thyroid Gland, Percutaneous Approach, Diagnostic (ICD-10-PCS; principal; 2021-01-03) | DX: E04.1 Nontoxic single thyroid nodule (principal) | CPT/HCPCS: 10005; 76942 ==

== ENCOUNTER 2021-06-05 04:25 | Day surgery (SDC) | payer OTHER, BC ==
[2021-06-01 17:01] VITALS: BMI 33.0
[2021-06-05] MEDS ORDERED: PROPOFOL 20 ML ONE (14:05)
[2021-06-05] MEDS ORDERED: ceFAZolin SODIUM 1 GM VIAL IVPB ONE (14:06)
[2021-06-05] MEDS ORDERED: ONDANSETRON 4 MG/2 ML VIAL IVPUSH PRN (14:34)
[2021-06-05] MEDS ORDERED: KETOROLAC TROMETHAMINE 30 MG/1 ML VIAL IVPUSH ONE (14:35)
[2021-06-05] MEDS ORDERED: ACETAMINOPHEN 1000 MG/100 ML BAG IVPB ONE (14:35)
[2021-06-05] MEDS ORDERED: LACTATED RINGERS SOLUTION 1,000 ML IV SCH (14:45)
[2021-06-05 17:05] VITALS: BP 157/62; PULSE 50; TEMP 97.8
== END 2021-06-05 16:50 | disposition home or self-care (01) ==
LOC: JASU-SURG 04:25
PROVIDERS: ATTEND Obstetrics & Gynecology
PROC: 0UDB8ZX Extraction of Endometrium, Via Natural or Artificial Opening Endoscopic, Diagnostic (ICD-10-PCS; principal; 2021-06-05 13:30)
DX: N84.0 Polyp of corpus uteri (principal)
CPT/HCPCS: 88305-TC; 94760

== ENCOUNTER 2021-08-25 10:19 | Emergency (ER) | payer OTHER, BC ==
[2021-08-25 10:58] VITALS: PULSE 61; BMI 31.4
[2021-08-25] MEDS ORDERED: LIDOCAINE 5% TOPICAL PATCH TP ONE (11:40)
[2021-08-25] MEDS ORDERED: ACETAMINOPHEN 325 MG TABLET (FP) PO ONE (11:40)
[2021-08-25] MEDS ORDERED: LIDOCAINE 5% TOPICAL PATCH ONE (12:01)
[2021-08-25] MEDS ORDERED: ACETAMINOPHEN 325 MG TABLET (FP) ONE (12:01)
[2021-08-25 12:59] VITALS: BP 154/66; TEMP 98.5
[2021-08-25] MEDS ORDERED: LIDOCAINE PATCH REMOVAL MC SCH (22:00)
== END 2021-08-25 12:59 | disposition home or self-care (01) ==
LOC: JER 10:19
DX: M25.511 Pain in right shoulder (principal)
CPT/HCPCS: 73030-TC-RT-FY; 99284-25

== ENCOUNTER 2023-06-13 09:57 | Day surgery (SDC) | payer OTHER, BC ==
[2023-06-13] MEDS: FERRIC CARBOXYMALTOSE 750 MG in SODIUM CHLORIDE 250 ML IVPB ONE (10:16)
[2023-06-13 14:02] VITALS: TEMP 98.7
[2023-06-13 14:12] VITALS: BP 134/43; PULSE 61; RESP 18
== END 2023-06-13 11:30 | disposition home or self-care (01) ==
LOC: J7W 09:57 → JONCNONCHE 09:57
PROVIDERS: ATTEND Internal Medicine Hematology & Oncology
PROC: 3E033GC Introduction of Other Therapeutic Substance into Peripheral Vein, Percutaneous Approach (ICD-10-PCS; principal; 2023-06-13)
DX: D50.9 Iron deficiency anemia, unspecified (principal)
CPT/HCPCS: 96365; J1439

== ENCOUNTER 2023-06-20 09:48 | Day surgery (SDC) | payer OTHER, BC ==
[2023-06-20] MEDS: FERRIC CARBOXYMALTOSE 750 MG in SODIUM CHLORIDE 250 ML IVPB ONE (10:24)
[2023-06-20 13:07] VITALS: RESP 18; TEMP 97.9
[2023-06-20 13:09] VITALS: BP 116/43; PULSE 62
== END 2023-06-20 11:45 | disposition home or self-care (01) ==
LOC: JONCNONCHE 09:48 → J7W 09:48 → JONCNONCHE 11:45
PROVIDERS: ATTEND Internal Medicine Hematology & Oncology
PROC: 3E033GC Introduction of Other Therapeutic Substance into Peripheral Vein, Percutaneous Approach (ICD-10-PCS; principal; 2023-06-20)
DX: D50.9 Iron deficiency anemia, unspecified (principal)
CPT/HCPCS: 96365; J1439

== ENCOUNTER 2023-08-07 15:09 | Observation (INO) | payer OTHER, BC ==
[2023-08-07 16:19] VITALS: BMI 35.6
[2023-08-07 17:16] LABS: BASO % 0.4 % (0-2.0); EOS % 0.6 % (0-4.5); HEMATOCRIT 21.2 % (32.4-45.2); HEMOGLOBIN 7.1 GM/dL (10.7-15.3); LYMPH % 17.6 % (8-40); MCHC 33.6 g/dl (32.0-36.0); MEAN CELL VOLUME 98.2 fl (80-96); MEAN PLT VOLUME 7.5 fl (7.5-11.1); MONO % 6.9 % (3.8-10.2); NEUT % 74.5 % (42.8-82.8); PLATELET COUNT 295 10^3/uL (134-434); RBC 2.16 M/mm3 (3.60-5.2); RDW 15.4 % (11.6-15.6); WHITE BLOOD COUNT 6.3 K/mm3 (4.0-10.0)
[2023-08-07 17:19] LABS: INR 1.04 (0.83-1.09)
[2023-08-07 17:22] LABS: ACTIVATED PTT 31.1 SECONDS (25.2-36.5)
[2023-08-07 17:34] LABS: POTASSIUM 5.8 mmol/L (3.5-5.1)
[2023-08-07 17:36] LABS: ALBUMIN 3.9 g/dl (3.4-5.0); BLOOD UREA NITROGEN 21.5 mg/dL (7-18); CALCIUM 8.4 mg/dL (8.5-10.1)
[2023-08-07 17:39] LABS: CREATININE 1.2 mg/dL (0.55-1.3)
[2023-08-07 17:41] LABS: BILIRUBIN,TOTAL 0.1 mg/dL (0.2-1); TOT PROT 7.2 g/dl (6.4-8.2)
[2023-08-08 09:29] LABS: HEMATOCRIT 22.1 % (32.4-45.2); HEMOGLOBIN 7.3 GM/dL (10.7-15.3); MCH 32.8 pg (25.7-33.7); MCHC 33.1 g/dl (32.0-36.0); MEAN CELL VOLUME 99.2 fl (80-96); MEAN PLT VOLUME 7.1 fl (7.5-11.1); PLATELET COUNT 299 10^3/uL (134-434); RBC 2.23 M/mm3 (3.60-5.2); RDW 15.8 % (11.6-15.6); WHITE BLOOD COUNT 4.8 K/mm3 (4.0-10.0)
[2023-08-08 09:48] LABS: POTASSIUM 5.4 mmol/L (3.5-5.1)
[2023-08-08 09:54] LABS: CALCIUM 9.3 mg/dL (8.5-10.1)
[2023-08-08 09:55] LABS: BLOOD UREA NITROGEN 19.6 mg/dL (7-18)
[2023-08-08 09:58] LABS: CREATININE 1.2 mg/dL (0.55-1.3)
[2023-08-08 09:59] LABS: BILIRUBIN,TOTAL 0.4 mg/dL (0.2-1)
[2023-08-08 13:15] VITALS: RESP 18
[2023-08-08] MEDS ORDERED: SODIUM ZIRCONIUM CYCLOSILICATE (LOKELMA) 5 GM PACKET ONE (18:31)
[2023-08-08] MEDS: SODIUM ZIRCONIUM CYCLOSILICATE (LOKELMA) 5 GM PACKET PO SCH (18:40)
[2023-08-09 06:39] VITALS: TEMP 97.7
[2023-08-09 07:13] LABS: EOS % 1.7 % (0-4.5); HEMOGLOBIN 9.6 GM/dL (10.7-15.3); LYMPH % 16.6 % (8-40); MCH 31.6 pg (25.7-33.7); MCHC 34.3 g/dl (32.0-36.0); MEAN CELL VOLUME 92.3 fl (80-96); MEAN PLT VOLUME 7.1 fl (7.5-11.1); MONO % 7.9 % (3.8-10.2); NEUT % 72.8 % (42.8-82.8); PLATELET COUNT 245 10^3/uL (134-434); RBC 3.04 M/mm3 (3.60-5.2); RDW 19.5 % (11.6-15.6)
[2023-08-09 07:35] LABS: POTASSIUM 4.6 mmol/L (3.5-5.1)
[2023-08-09 07:41] LABS: ALBUMIN 3.6 g/dl (3.4-5.0); BLOOD UREA NITROGEN 20.2 mg/dL (7-18); CALCIUM 8.6 mg/dL (8.5-10.1)
[2023-08-09 07:44] LABS: PHOSPHOROUS 4.4 mg/dL (2.5-4.9)
[2023-08-09 07:46] LABS: BILIRUBIN,TOTAL 0.6 mg/dL (0.2-1); TOT PROT 6.7 g/dl (6.4-8.2)
[2023-08-09 09:29] VITALS: BP 113/56; PULSE 62
== END 2023-08-09 13:31 | disposition home or self-care (01) ==
LOC: JER 15:09 → JERBED 17:21 → J7W 08-08 19:33
PROVIDERS: ADMIT Internal Medicine; ATTEND Internal Medicine
PROC: 30233N1 Transfusion of Nonautologous Red Blood Cells into Peripheral Vein, Percutaneous Approach (ICD-10-PCS; principal; 2023-08-07)
DX: D64.9 Anemia, unspecified (principal); I25.10 Atherosclerotic heart disease of native coronary artery without angina pectoris; R94.8 Abnormal results of function studies of other organs and systems; I11.0 Hypertensive heart disease with heart failure; K21.9 Gastro-esophageal reflux disease without esophagitis; E07.9 Disorder of thyroid, unspecified; E78.5 Hyperlipidemia, unspecified; E87.5 Hyperkalemia; R53.83 Other fatigue
CPT/HCPCS: 36415; 36430; 80053; 83735; 84100; 85025; 85027; 85610; 85730; 86850; 86900; 86901; 86922; 93005; 93010; 99285-25; G0378; P9058

== ENCOUNTER 2024-03-20 13:05 | Inpatient (IN) | payer OTHER, BC ==
[2024-03-20 14:40] LABS: BASO % 0.3 % (0-2.0); EOS % 0.4 % (0-4.5); HEMATOCRIT 21.2 % (32.4-45.2); LYMPH % 11.9 % (8-40); MCH 30.9 pg (25.7-33.7); MCHC 31.7 g/dl (32.0-36.0); MEAN CELL VOLUME 97.4 fl (80-96); MEAN PLT VOLUME 7.5 fl (7.5-11.1); MONO % 4.4 % (3.8-10.2); PLATELET COUNT 308 10^3/uL (134-434); RBC 2.18 M/mm3 (3.60-5.2); WHITE BLOOD COUNT 8.1 K/mm3 (4.0-10.0)
[2024-03-20 14:46] LABS: HEMOGLOBIN 6.7 GM/dL (10.7-15.3); INR 1.13 (0.83-1.09); PROTHROMBIN TIME (PATIENT) 12.9 SEC (9.7-13.0)
[2024-03-20 15:04] LABS: POTASSIUM 4.5 mmol/L (3.5-5.1)
[2024-03-20 15:08] LABS: ALBUMIN 3.7 g/dl (3.4-5.0); BLOOD UREA NITROGEN 24.6 mg/dL (7-18); CALCIUM 9.2 mg/dL (8.5-10.1)
[2024-03-20 15:10] LABS: CREATININE 1.2 mg/dL (0.55-1.3)
[2024-03-20 15:11] LABS: BILIRUBIN,TOTAL 0.2 mg/dL (0.2-1)
[2024-03-20 15:12] LABS: TOT PROT 7.2 g/dl (6.4-8.2)
[2024-03-20] MEDS: PIPERACILLIN/TAZOB 4.5 GM 4.5 GM in DEXTROSE 5%-WATER 100 ML IVPB ONE (15:15)
[2024-03-20] MEDS: SODIUM CHLORIDE 1,000 ML IV STA (15:15)
[2024-03-20] MEDS: CIPROFLOXACIN 400 MG/D5W 400 MG/200 ML IVPB IVPB ONE (15:15)
[2024-03-20] MEDS: IRON SUCROSE INJECTION 200 MG in SODIUM CHLORIDE 100 ML IVPB ONE (17:30)
[2024-03-20 19:57] VITALS: BMI 33.3
[2024-03-20] MEDS: ROSUVASTATIN CA 20 MG TABLET PO SCH (21:48)
[2024-03-21] MEDS: MELATONIN 5 MG TABLETS PO ONE (03:02)
[2024-03-21] MEDS: PANTOPRAZOLE 40 MG TABLET PO SCH (09:35)
[2024-03-21 09:52] LABS: BASO % 0.8 % (0-2.0); EOS % 1.8 % (0-4.5); HEMATOCRIT 24.1 % (32.4-45.2); HEMOGLOBIN 7.8 GM/dL (10.7-15.3); LYMPH % 18.2 % (8-40); MCH 30.8 pg (25.7-33.7); MCHC 32.5 g/dl (32.0-36.0); MEAN CELL VOLUME 94.9 fl (80-96); MEAN PLT VOLUME 8.2 fl (7.5-11.1); MONO % 8.3 % (3.8-10.2); NEUT % 70.9 % (42.8-82.8); PLATELET COUNT 292 10^3/uL (134-434); RBC 2.54 M/mm3 (3.60-5.2); RDW 15.7 % (11.6-15.6); WHITE BLOOD COUNT 5.1 K/mm3 (4.0-10.0)
[2024-03-21] MEDS: VALSARTAN 160 MG TABLET PO SCH (10:06)
[2024-03-21] MEDS: CARVEDILOL PHOSPHATE CR 40 MG CAPSULE (FP) PO SCH (10:06)
[2024-03-21 10:08] LABS: POTASSIUM 4.6 mmol/L (3.5-5.1)
[2024-03-21 10:19] LABS: CALCIUM 9.1 mg/dL (8.5-10.1)
[2024-03-21 10:20] LABS: ALBUMIN 3.3 g/dl (3.4-5.0)
[2024-03-21 10:21] LABS: MAGNESIUM 2.1 mg/dL (1.8-2.4)
[2024-03-21 10:24] LABS: CREATININE 1.1 mg/dL (0.55-1.3)
[2024-03-21 10:25] LABS: BILIRUBIN,TOTAL 0.4 mg/dL (0.2-1); TOT PROT 6.7 g/dl (6.4-8.2)
[2024-03-21] MEDS: IRON SUCROSE INJECTION 200 MG in SODIUM CHLORIDE 100 ML IVPB ONE (17:36)
[2024-03-21 17:50] VITALS: BP 143/62; PULSE 60; RESP 18; TEMP 98.2
[2024-03-21] MEDS: FUROSEMIDE 40 MG/4 ML INJECTABLE VIAL IVPUSH ONE (18:16)
== END 2024-03-21 21:18 | disposition home or self-care (01) | DRG 812 ==
LOC: JER 13:05 → JERBED 15:13 → J8W 18:25
PROVIDERS: ADMIT Family Medicine; ATTEND Family Medicine
PROC: 30233N1 Transfusion of Nonautologous Red Blood Cells into Peripheral Vein, Percutaneous Approach (ICD-10-PCS; principal; 2024-03-20)
DX: D50.9 Iron deficiency anemia, unspecified (principal); I25.10 Atherosclerotic heart disease of native coronary artery without angina pectoris; I10 Essential (primary) hypertension; E78.5 Hyperlipidemia, unspecified; K21.9 Gastro-esophageal reflux disease without esophagitis; I49.3 Ventricular premature depolarization; I45.10 Unspecified right bundle-branch block; M17.11 Unilateral primary osteoarthritis, right knee
CPT/HCPCS: 36415; 36430; 80053; 82728; 83540; 83550; 83735; 84443; 85025; 85610; 86850; 86900; 86901; 86922; 93005; 93010; 99285-25; J1756; P9058

== ENCOUNTER 2024-04-24 11:06 | Day surgery (SDC) | payer OTHER, BC ==
[2024-04-24 11:39] VITALS: BP 120/51; PULSE 67; TEMP 98.2
[2024-04-24] MEDS ORDERED: diphenhydrAMINE HCL 50 MG CAPSULE PO PRN (11:45)
[2024-04-24] MEDS ORDERED: HYDROCORTISONE SOD SUCCINATE 100 MG/2 ML VIAL IVPB PRN (11:46)
[2024-04-24] MEDS: IRON SUCROSE INJECTION 200 MG in SODIUM CHLORIDE 100 ML IVPB ONE (11:55)
[2024-04-24 13:51] VITALS: RESP 18
== END 2024-04-24 13:52 | disposition home or self-care (01) ==
LOC: FINFUSION 11:06 → FM/S 11:07 → FINFUSION 13:52
PROVIDERS: ATTEND Internal Medicine Gastroenterology
PROC: 3E033GC Introduction of Other Therapeutic Substance into Peripheral Vein, Percutaneous Approach (ICD-10-PCS; principal; 2024-04-24)
DX: D50.9 Iron deficiency anemia, unspecified (principal)
CPT/HCPCS: 96365; J1756

== ENCOUNTER 2024-05-01 10:05 | Day surgery (SDC) | payer OTHER, BC ==
[2024-05-01] MEDS ORDERED: HYDROCORTISONE SOD SUCCINATE 100 MG/2 ML VIAL IVPB PRN (11:17)
[2024-05-01] MEDS ORDERED: diphenhydrAMINE HCL 50 MG CAPSULE PO PRN (11:17)
[2024-05-01 11:23] VITALS: RESP 16; TEMP 97.7
[2024-05-01] MEDS: IRON SUCROSE INJECTION 200 MG in SODIUM CHLORIDE 100 ML IVPB ONE (11:31)
[2024-05-01 12:44] VITALS: BP 133/52; PULSE 66
== END 2024-05-01 12:45 | disposition home or self-care (01) ==
LOC: FINFUSION 10:05 → FM/S 11:04 → FINFUSION 12:45
PROVIDERS: ATTEND Internal Medicine Gastroenterology
PROC: 3E033GC Introduction of Other Therapeutic Substance into Peripheral Vein, Percutaneous Approach (ICD-10-PCS; principal; 2024-05-01)
DX: D50.9 Iron deficiency anemia, unspecified (principal)
CPT/HCPCS: 96365; J1756

== ENCOUNTER 2024-05-08 10:35 | Day surgery (SDC) | payer OTHER, BC ==
[2024-05-08] MEDS ORDERED: diphenhydrAMINE HCL 50 MG CAPSULE PO PRN (11:23)
[2024-05-08] MEDS ORDERED: HYDROCORTISONE SOD SUCCINATE 100 MG/2 ML VIAL IVPB PRN (11:24)
[2024-05-08] MEDS: IRON SUCROSE INJECTION 200 MG in SODIUM CHLORIDE 100 ML IVPB ONE (11:39)
[2024-05-08 13:25] VITALS: BP 132/57; PULSE 60; RESP 18; TEMP 98.5
== END 2024-05-08 12:50 | disposition home or self-care (01) ==
LOC: FINFUSION 10:35 → FM/S 10:58 → FINFUSION 12:50
PROVIDERS: ATTEND Internal Medicine Gastroenterology
PROC: 3E033GC Introduction of Other Therapeutic Substance into Peripheral Vein, Percutaneous Approach (ICD-10-PCS; principal; 2024-05-08)
DX: D50.9 Iron deficiency anemia, unspecified (principal)
CPT/HCPCS: 96365; J1756

== ENCOUNTER 2024-05-15 11:06 | Day surgery (SDC) | payer OTHER, BC ==
[2024-05-15] MEDS: IRON SUCROSE INJECTION 200 MG in SODIUM CHLORIDE 100 ML IVPB ONE (12:05)
[2024-05-15 13:59] VITALS: BP 132/72; PULSE 62; RESP 18; TEMP 98.4
== END 2024-05-15 13:30 | disposition home or self-care (01) ==
LOC: FINFUSION 11:06 → FM/S 11:09 → FINFUSION 13:30
PROVIDERS: ATTEND Internal Medicine Gastroenterology
PROC: 3E033GC Introduction of Other Therapeutic Substance into Peripheral Vein, Percutaneous Approach (ICD-10-PCS; principal; 2024-05-15)
DX: D50.9 Iron deficiency anemia, unspecified (principal)
CPT/HCPCS: 96365; J1756

== ENCOUNTER 2024-05-20 08:10 | Day surgery (SDC) | payer OTHER, BC ==
[2024-05-20] MEDS: diphenhydrAMINE HCL 25 MG CAPSULE (FP) PO ONE (09:46)
[2024-05-20] MEDS: ACETAMINOPHEN 325 MG TABLET (FP) PO ONE (09:47)
[2024-05-20 15:53] VITALS: BP 124/44; PULSE 60; RESP 18; TEMP 97.8
== END 2024-05-20 14:00 | disposition home or self-care (01) ==
LOC: JONCBLOOD 08:10 → J7W 08:19 → JONCBLOOD 14:00
PROVIDERS: ATTEND Internal Medicine Hematology & Oncology
PROC: 30233N1 Transfusion of Nonautologous Red Blood Cells into Peripheral Vein, Percutaneous Approach (ICD-10-PCS; principal; 2024-05-20)
DX: D64.9 Anemia, unspecified (principal)
CPT/HCPCS: 36430; 86850; 86900; 86901; 86922; P9058

== ENCOUNTER 2024-06-19 08:48 | Day surgery (SDC) | payer OTHER, BC ==
[2024-06-19 09:29] LABS: HEMOGLOBIN 7.6 g/dL (11.2-15.7); MCHC 31.7 g/dl (32.2-35.5); MEAN PLT VOLUME 9.6 fl (9.4-12.3); PLATELET COUNT 291 x10^3/uL (182-369); RDW 15.1 % (12.4-16.6)
[2024-06-19] MEDS: IRON SUCROSE INJECTION 200 MG in SODIUM CHLORIDE 100 ML IVPB ONE (09:30)
[2024-06-19 14:35] VITALS: BP 145/40; PULSE 65; RESP 20; TEMP 98.2
== END 2024-06-19 11:15 | disposition home or self-care (01) ==
LOC: JINFUSION 08:48 → J7W 08:49 → JINFUSION 11:15
PROVIDERS: ATTEND Internal Medicine Gastroenterology
PROC: 3E033GC Introduction of Other Therapeutic Substance into Peripheral Vein, Percutaneous Approach (ICD-10-PCS; principal; 2024-06-19)
DX: D50.9 Iron deficiency anemia, unspecified (principal)
CPT/HCPCS: 36415; 85027; 96365; J1756

== ENCOUNTER 2024-06-26 09:58 | Day surgery (SDC) | payer OTHER, BC ==
[2024-06-26] MEDS: IRON SUCROSE INJECTION 200 MG in SODIUM CHLORIDE 100 ML IVPB ONE (09:45)
[2024-06-26 11:23] VITALS: BP 148/57; PULSE 56; RESP 20; TEMP 97.5
== END 2024-06-26 10:45 | disposition home or self-care (01) ==
LOC: JINFUSION 09:58 → J7W 09:59 → JINFUSION 10:45
PROVIDERS: ATTEND Internal Medicine Gastroenterology
PROC: 3E033GC Introduction of Other Therapeutic Substance into Peripheral Vein, Percutaneous Approach (ICD-10-PCS; principal; 2024-06-26)
DX: D50.9 Iron deficiency anemia, unspecified (principal)
CPT/HCPCS: 96365; J1756

== ENCOUNTER 2024-07-03 08:46 | Day surgery (SDC) | payer OTHER, BC ==
[2024-07-03 09:39] LABS: HEMOGLOBIN 7.6 g/dL (11.2-15.7); MCHC 31.7 g/dl (32.2-35.5); MEAN CELL VOLUME 102.6 fl (79.4-94.8); MEAN PLT VOLUME 9.9 fl (9.4-12.3); PLATELET COUNT 276 x10^3/uL (182-369); RDW 14.3 % (12.4-16.6)
[2024-07-03] MEDS: IRON SUCROSE INJECTION 200 MG in SODIUM CHLORIDE 100 ML IVPB ONE (09:47)
[2024-07-03 12:05] VITALS: TEMP 98.1
[2024-07-03 12:06] VITALS: BP 160/80; PULSE 74; RESP 16
== END 2024-07-03 11:00 | disposition home or self-care (01) ==
LOC: JINFUSION 08:46
PROVIDERS: ATTEND Internal Medicine Gastroenterology
PROC: 3E033GC Introduction of Other Therapeutic Substance into Peripheral Vein, Percutaneous Approach (ICD-10-PCS; principal; 2024-07-03)
DX: D50.9 Iron deficiency anemia, unspecified (principal)
CPT/HCPCS: 36415; 85027; 96365; J1756

== ENCOUNTER 2024-07-17 09:42 | Day surgery (SDC) | payer OTHER, BC ==
[~2024-07-17 09:42] MED LIST changes: -CEFAZOLIN 2 GM in DEXTROSE 5%-WATER - 100 ML IVPB ONE; +IRON SUCROSE INJECTION 200 MG in SODIUM CHLORIDE 100 ML IVPB SCH
[2024-07-17] MEDS: IRON SUCROSE INJECTION 200 MG in SODIUM CHLORIDE 100 ML IVPB SCH (11:37)
[2024-07-17 16:25] VITALS: TEMP 97.6
[2024-07-17 16:32] VITALS: BP 146/64; PULSE 63; RESP 18
== END 2024-07-17 16:32 | disposition home or self-care (01) ==
LOC: JINFUSION 09:42 → J7W 09:43 → JINFUSION 16:32
PROVIDERS: ATTEND Internal Medicine Gastroenterology
PROC: 3E033GC Introduction of Other Therapeutic Substance into Peripheral Vein, Percutaneous Approach (ICD-10-PCS; principal; 2024-07-17)
DX: D50.9 Iron deficiency anemia, unspecified (principal)
CPT/HCPCS: 96365; J1756